=== PATIENT | female | born 1950 | race Caucasian/White ===

== ENCOUNTER 2016-12-29 19:35 | Inpatient (IN) | payer MEDICARE, OTHER ==
[2016-12-29] MEDS ORDERED: Zofran 4 MG/2 ML VIAL IV ONE (19:42)
[2016-12-29] MEDS ORDERED: Pepcid 20 MG VIAL IV ONE ×2 (19:42→20:06)
[2016-12-29] MEDS ORDERED: Hydromorphone 1 mg/ml Ampule IV ONE (19:42)
[2016-12-29] MEDS ORDERED: FEVERALL 650 MG PR STA (19:43)
[2016-12-29] MEDS ORDERED: Sodium Chloride 0.9% 1000 ML 1,000 ML IV SCH (19:45)
[2016-12-29 19:53] LABS: Mean Cell Volume 93.1 fl (78-100); Mean Corpuscular Hemoglobin 30.2 pg (26-32); Mean Platelet Volume 11.8 fl (6-9.5); Platelet Count 141 K/mm3 (150-450); Red Blood Count 4.96 M/mm3 (4.1-5.4); White Blood Count 13.9 K/mm3 (4.0-10.5)
[2016-12-29] MEDS ORDERED: Zofran 4 MG/2 ML VIAL ONE (20:05)
[2016-12-29] MEDS ORDERED: FEVERALL 650 MG ONE (20:05)
[2016-12-29] MEDS ORDERED: Hydromorphone 1 mg/ml Ampule ONE (20:06)
[2016-12-29] MEDS ORDERED: Sodium Chloride 0.9% 1000 ML 1,000 ML ONE (20:06)
--- NOTE | 2016-12-29 20:13 | ERPHSYRPT ---
- History of Present Illness Time Seen by Provider: 12/29/16 19:42 Historian: patient Patient Subjective Stated Complaint: pt has been having abd pain and vomiting since thursday she was better then tonight it is worse-co right lower quad pain pos fever sm amt of darrhea -took bentyl ib piedad Triage Nursing Assessment: pt is awake and alert and able to to answer questions Physician History: CC: abd pain Hx: 66 y/o patient of Dr Dubon with hx of irritable bowel syndrome. She has lower abd pain for the past 3 days. Now has fever. Some diarrhea. Pain worsened. Normal urination. Nausea without vomiting. She had prior normal EGD and colonoscopy in 2014. She had prior hysterectomy. No hx of DM. Pain is aching , sharp, worsened. Timing/Duration: day(s) (3) Severity of Pain-Max: moderate Severity of Pain-Current: moderate Allergies/Adverse Reactions: ibuprofen Adverse Reaction (Mild, Verified 12/29/16 19:44) stomach upset Home Medications: Dicyclomine HCl 20 mg [Bentyl 20 mg] 20 mg PO QID 12/29/16 [History] Lisinopril 10 mg [Zestril 10 MG] 10 mg DAILY 12/29/16 [History] Lisinopril 10 mg [Zestril 10 MG] 10 mg PO DAILY 12/29/16 [History] Lorazepam 0.5 mg [Ativan 0.5 MG] 0.5 mg PO TID PRN 12/29/16 [History] Lorazepam 0.5 mg [Ativan 0.5 MG] 1 tab DAILY 12/29/16 [History] Hx Tetanus, Diphtheria Vaccination/Date Given: No Hx Influenza Vaccination/Date Given: No Hx Pneumococcal Vaccination/Date Given: No Immunizations Up to Date: No - Review of Systems Constitutional: Fever, Chills, Fatigue, Malaise Eyes: No Symptoms Ears, Nose, & Throat: No Symptoms Respiratory: No Cough Cardiac: No Chest Pain Abdominal/Gastrointestinal: Abdominal Pain, Nausea, Diarrhea, No Vomiting Genitourinary Symptoms: No Dysuria Skin: No Rash Neurological: No Headache All Other Systems: Reviewed and Negative - Past Medical History Pertinent Past Medical History: Yes Neurological History: No Pertinent History ENT History: No Pertinent History Cardiac History: Hypertension Respiratory History: No Pertinent History Endocrine Medical History: No Pertinent History Musculoskeletal History: Arthritis GI Medical History: GERD, Hemorrhoids, Irritable Bowel History: No Pertinent History Psycho-Social History: Anxiety Female Reproductive Disorders: Abnormal Uterine Bleeding Other Medical History: anemia - Past Surgical History Past Surgical History: Yes Neuro Surgical History: No Pertinent History Cardiac: No Pertinent History Respiratory: No Pertinent History Gastrointestinal: Hemorrhoidectomy Genitourinary: No Pertinent History Musculoskeletal: No Pertinent History Female Surgical History: Hysterectomy Other Surgical History: tubal - Social History Smoking Status: Never smoker Exposure to second hand smoke: No Drug Use: none Patient Lives Alone: No - Female History Hx Last Menstrual Period: hyst 20yrs ago - Nursing Vital Signs Nursing Vital Signs: Initial Vital Signs Temperature 101.0 F Temperature Source Oral Pulse Rate 90 Respiratory Rate 18 Blood Pressure [Right Arm] 145/91 Pain Intensity 0 - Physical Exam General Appearance: alert Eye Exam: PERRL/EOMI Ears, Nose, Throat Exam: normal ENT inspection, dry mucous membranes Neck Exam: normal inspection, non-tender, supple Respiratory Exam: normal breath sounds, lungs clear, No respiratory distress Cardiovascular Exam: regular rate/rhythm, No murmur Gastrointestinal/Abdomen Exam: soft, tenderness (lower abdomen, guarding in RLQ , no mass) Back Exam: normal inspection Extremity Exam: normal inspection, normal range of motion Neurologic Exam: alert, oriented x 3, cooperative, mitigation supervisor II-XII nml as tested, sensation nml, No motor deficits Skin Exam: warm, dry, No rash SpO2 Interpretation: normal SpO2: 94 Oxygen Delivery: Room Air - Course Nursing assessment & vital signs reviewed: Yes EKG Interpreted by Me: RATE (86), Sinus Rhythm, NORMAL AXIS, NORMAL INTERVALS ( QTc 453), NORMAL QRS, NORMAL ST-T, Non-specific ST Changes (borderline for LVH) Ordered Tests: Active Orders 24 hr Category Date Time Status Cath for Specimen-Straight STAT Care 12/29/16 19:42 Active EKG-ER Only STAT Care 12/29/16 19:42 Active IV Insertion STAT Care 12/29/16 19:42 Active NPO (ED) STAT Care 12/29/16 19:42 Active ABDOMEN AND PELVIS W CONTRAST [CT] Stat Exams 12/29/16 19:43 Taken CBC W DIFF Stat Lab 12/29/16 19:45 Completed CMP Stat Lab 12/29/16 19:45 Completed CULTURE,URINE Stat Lab 12/29/16 20:05 Received LIPASE Stat Lab 12/29/16 19:45 Completed Lactic Acid Urgent Lab 12/29/16 19:55 Completed Manual Differential NC Stat Lab 12/29/16 19:45 Completed UA W/ MICROSCOPIC Stat Lab 12/29/16 20:05 Completed Medication Summary Generic Name Dose Route Start Last Admin Trade Name Herberth PRN Reason Stop Dose Admin Sodium Chloride 1,000 mls @ 100 mls/hr 12/29/16 19:45 12/29/16 20:10 Sodium Chloride 0.9% 1000 Ml IV 01/28/17 19:44 100 mls/hr .Q10H PABLITO Administration Discontinued Medications Generic Name Dose Route Start Last Admin Trade Name Herberth PRN Reason Stop Dose Admin Acetaminophen 975 mg 12/29/16 19:43 12/29/16 20:09 Feverall 650 Mg MS 12/29/16 19:44 975 mg STAT STA Administration Acetaminophen Confirm 12/29/16 20:05 Feverall 650 Mg Administered 12/29/16 20:06 Dose 1,300 mg .ROUTE .STK-MED ONE Famotidine 20 mg 12/29/16 19:42 12/29/16 20:08 Pepcid 20 Mg Vial IV 12/29/16 19:43 20 mg STAT ONE Administration Famotidine Confirm 12/29/16 20:06 Pepcid 20 Mg Vial Administered 12/29/16 20:07 Dose 20 mg IV .STK-MED ONE Hydromorphone HCl 0.5 mg 12/29/16 19:42 12/29/16 20:09 Hydromorphone 1 Mg/Ml Ampule IV 12/29/16 19:43 0.5 mg STAT ONE Administration Hydromorphone HCl Confirm 12/29/16 20:06 Hydromorphone 1 Mg/Ml Ampule Administered 12/29/16 20:07 Dose 1 mg .ROUTE .STK-MED ONE Sodium Chloride Confirm 12/29/16 20:06 Sodium Chloride 0.9% 1000 Ml Administered 12/29/16 20:07 Dose 1,000 mls @ ud .ROUTE .STK-MED ONE Ondansetron HCl 4 mg 12/29/16 19:42 12/29/16 20:08 Zofran 4 Mg/2 Ml Vial IV 12/29/16 19:43 4 mg STAT ONE Administration Ondansetron HCl Confirm 12/29/16 20:05 Zofran 4 Mg/2 Ml Vial Administered 12/29/16 20:06 Dose 4 mg .ROUTE .STK-MED ONE Lab/Rad Data: Laboratory Result Diagrams 12/29/16 19:45 12/29/16 19:45 Laboratory Results 12/29/16 12/29/16 12/29/16 Range/Units 20:05 19:55 19:45 WBC (4.0-10.5) K/mm3 RBC (4.1-5.4) M/mm3 Hgb (12.0-16.0) gm/dl Hct (35-47) % MCV (78-100) fl MCH (26-32) pg MCHC (32-36) g/dl RDW (11.5-14.0) % Plt Count (150-450) K/mm3 MPV (6-9.5) fl Segmented Neutrophils (36.0-66.0) % Lymphocytes (Manual) (24-44) % Monocytes (Manual) (0.0-12.0) % Differential Comment Platelet Estimate (NORMAL) Sodium 143 (136-145) mEq/L Potassium 4.0 (3.5-5.1) mEq/L Chloride 104 (98-107) mEq/L Carbon Dioxide 24.6 (21-32) mEq/L Anion Gap 17.9 H (5-15) MEQ/L BUN 10 (9-20) mg/dL Creatinine 0.92 (0.55-1.30) mg/dl Estimated GFR > 60 ML/MIN Glucose 156 H (70-110) MG/DL Lactic Acid 1.5 (0.4-2.0) Calcium 9.4 (8.5-10.1) mg/dL Total Bilirubin 0.5 (0.2-1.0) mg/dL AST 20 (15-37) U/L ALT 18 (12-78) U/L Alkaline Phosphatase 151 H (46-116) U/L Serum Total Protein 7.5 (6.4-8.2) gm/dL Albumin 3.8 (3.4-5.0) g/dL Lipase 153 (73-393) U/L Ur Collection Type CATH Urine Color YELLOW (YELLOW) Urine Appearance CLEAR (CLEAR) Urine pH 5.5 (5-6) Ur Specific [place] >=1.030 (1.005-1.025) Urine Protein 100 (Negative) Urine Glucose (UA) NEGATIVE (NEGATIVE) mg/dL Urine Ketones MODERATE-40 (NEGATIVE) Urine Nitrite NEGATIVE (NEGATIVE) Urine Bilirubin SMALL (NEGATIVE) Urine Urobilinogen 1 (0-1) mg/dL Urine WBC (Auto) NEGATIVE (NEGATIVE) Urine RBC (Auto) SMALL (0-5) Zach/ul Urine Microscopic RBC 5-10 (0-2) /HPF Ur Epithelial Cells RARE (FEW) /HPF Urine Bacteria MANY (NEGATIVE) /HPF Urine Mucus MODERATE (NEGATIVE) /HPF Specimen Received [id number] 12/29/16 Range/Units 19:45 WBC 13.9 H (4.0-10.5) K/mm3 RBC 4.96 (4.1-5.4) M/mm3 Hgb 15.0 (12.0-16.0) gm/dl Hct 46.2 (35-47) % MCV 93.1 (78-100) fl MCH 30.2 (26-32) pg MCHC 32.5 (32-36) g/dl RDW 13.0 (11.5-14.0) % Plt Count 141 L (150-450) K/mm3 MPV 11.8 H (6-9.5) fl Segmented Neutrophils 90 H (36.0-66.0) % Lymphocytes (Manual) 6 L (24-44) % Monocytes (Manual) 4 (0.0-12.0) % Differential Comment NORMAL Platelet Estimate NORMAL (NORMAL) Sodium (136-145) mEq/L Potassium (3.5-5.1) mEq/L Chloride (98-107) mEq/L Carbon Dioxide (21-32) mEq/L Anion Gap (5-15) MEQ/L BUN (9-20) mg/dL Creatinine (0.55-1.30) mg/dl Estimated GFR ML/MIN Glucose (70-110) MG/DL Lactic Acid (0.4-2.0) Calcium (8.5-10.1) mg/dL Total Bilirubin (0.2-1.0) mg/dL AST (15-37) U/L ALT (12-78) U/L Alkaline Phosphatase (46-116) U/L Serum Total Protein (6.4-8.2) gm/dL Albumin (3.4-5.0) g/dL Lipase (73-393) U/L Ur Collection Type Urine Color (YELLOW) Urine Appearance (CLEAR) Urine pH (5-6) Ur Specific [place] (1.005-1.025) Urine Protein (Negative) Urine Glucose (UA) (NEGATIVE) mg/dL Urine Ketones (NEGATIVE) Urine Nitrite (NEGATIVE) Urine Bilirubin (NEGATIVE) Urine Urobilinogen (0-1) mg/dL Urine WBC (Auto) (NEGATIVE) Urine RBC (Auto) (0-5) Zach/ul Urine Microscopic RBC (0-2) /HPF Ur Epithelial Cells (FEW) /HPF Urine Bacteria (NEGATIVE) /HPF Urine Mucus (NEGATIVE) /HPF Specimen Received - Progress Progress Note: 12/29/16 20:[address] to assess for appendicitis or diverticultitis. She appears to have intrabdominal infectious process that might be surgical. 12/29/16 21:20 CT abd/pelvis: [place] 9:15 PM 12/29/2016: No comps. Large HH w/ fluid distended intrathoracic stomach. Diffuse moderate fluid distended small bowel loops w/ fluid leveling, ileus vs enteritis. Small pelvic free fluid. Normal appy. 12/29/16 21:28 Pain improved. She reports no diarrhea today. Vomited X 2 today. 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 Called Dr Dubon. Will place in obs, levaqun, flagyl, and recheck cbc in AM. Discussed with : Bob Will see patient in: hospital (observation) Counseled pt/family regarding: lab results, diagnosis, need for follow-up, rad results - Departure Time of Disposition: 21:29 Departure Disposition: Observation Clinical Impression: Acute abdominal pain Condition: Fair Critical Care Time: No Referrals: HITESH DUBON MD [Primary Care Provider] -
[2016-12-29 20:14] LABS: ALBUMIN 3.8 g/dL (3.4-5.0); ALKALINE PHOSPHATASE 151 U/L (46-116); ANION GAP 17.9 MEQ/L (5-15); BILIRUBIN,TOTAL 0.5 mg/dL (0.2-1.0); BLOOD UREA NITROGEN 10 mg/dL (9-20); CHLORIDE 104 mEq/L (98-107); Carbon Dioxide 24.6 mEq/L (21-32); Glucose 156 MG/DL (70-110); LIPASE 153 U/L (73-393); SGOT/AST 20 U/L (15-37); SGPT/ALT 18 U/L (12-78); SODIUM 143 mEq/L (136-145); Total Protein 7.5 gm/dL (6.4-8.2)
[2016-12-29 20:20] LABS: Collection Type CATH
[2016-12-29 20:21] LABS: Bacteria MANY /HPF (NEGATIVE); COMPLETE URINE MICROSCOPIC? YES; Epithelial Cells RARE /HPF (FEW); Mucus MODERATE /HPF (NEGATIVE); Ph 5.5 (5-6)
[2016-12-29 21:08] LABS: Platelet Estimate NORMAL (NORMAL); Total Cells Counted 100
[2016-12-29] MEDS ORDERED: LEVOFLOXACIN 750MG/150ML D5W 150 ML IV ONE (21:27)
[2016-12-29] MEDS ORDERED: FLAGYL 500 MG IVPB 100 ML IV ONE ×2 (21:27→22:06)
[2016-12-29] MEDS: Pepcid 20 MG VIAL IV SCH (23:48)
[2016-12-29] MEDS: D5W/0.45NS W/ 20mEq KCl 1000 ML 1,000 ML IV SCH (23:54)
[2016-12-30] MEDS: DILAUDID 2 MG INJECTION IV PRN ×4 (00:06→21:18)
[2016-12-30] MEDS: FLAGYL 500 MG IVPB 100 ML IV SCH ×5 (00:14→23:19)
[2016-12-30] MEDS: Zofran 4 MG/2 ML VIAL IV PRN ×2 (04:40→11:02)
[2016-12-30 06:31] LABS: BASOPHIL % 0.1 % (0.0-0.4); Eosinophil % 0.3 % (0.00-5.0); Granulocytes % 75.7 % (36.0-66.0); Lymphocytes % 11.5 % (24.0-44.0); Mean Cell Volume 95.1 fl (78-100); Mean Corpuscular Hemoglobin 30.3 pg (26-32); Mean Platelet Volume 12.4 fl (6-9.5); Monocytes % 12.4 % (0.0-12.0); Platelet Count 111 K/mm3 (150-450); Red Blood Count 4.32 M/mm3 (4.1-5.4); White Blood Count 8.9 K/mm3 (4.0-10.5)
[2016-12-30 07:10] LABS: ALBUMIN 3.1 g/dL (3.4-5.0); ALKALINE PHOSPHATASE 116 U/L (46-116); ANION GAP 14.4 MEQ/L (5-15); BILIRUBIN,TOTAL 0.4 mg/dL (0.2-1.0); BLOOD UREA NITROGEN 8 mg/dL (9-20); CHLORIDE 109 mEq/L (98-107); Carbon Dioxide 26.1 mEq/L (21-32); Glucose 125 MG/DL (70-110); Potassium 3.9 mEq/L (3.5-5.1); SGOT/AST 17 U/L (15-37); SGPT/ALT 16 U/L (12-78); SODIUM 146 mEq/L (136-145); Total Protein 6.3 gm/dL (6.4-8.2)
--- NOTE | 2016-12-30 08:48 | XRAY ---
Indication: Right lower quadrant pain, emesis, diarrhea, and fever. History of IBS and GERD. Multiple contiguous axial images obtained through the abdomen and pelvis using 80 cc Isovue 370 contrast only. Comparison: None Lung bases demonstrates large hiatal hernia with partial intrathoracic stomach that is moderately fluid distended with adjacent bilateral atelectasis. No suspicious pulmonary mass, infiltrate, or effusion. Heart is borderline enlarged. Moderate diffuse fluid distended small bowel loops with fluid leveling, ileus versus enteritis. Small pelvic free fluid may be reactive. Normal colonic bowel gas without bowel wall thickening. Normal appendix. Minimal sigmoid diverticulosis. Previous hysterectomy. Remaining liver, gallbladder, pancreas, spleen, adrenal glands, kidneys, ureters, and bladder appear unremarkable. Minimal aortoiliac calcifications. No AAA or pathologic retroperitoneal lymphadenopathy. Osseous structures intact with mild osteopenia, mild degenerative changes throughout the spine and both hips, and mild dextroscoliosis. Impression: 1. Fluid distended small bowel loops with fluid leveling. Rule out ileus versus enteritis. Small pelvic fluid presumed reactive. 2. Large hiatal hernia with fluid distended intrathoracic stomach. 3. Sigmoid diverticulosis. CT DI 15.82
--- NOTE | 2016-12-30 08:56 | PCM.HP ---
History of Present Illness - Chief Complaint Chief Complaint: abd pain History of Present Illness: is a 66 year old female who presented to the ER with a 2 day history of worsening low abdominal pain, she had some nausea and vomiting. No diarrhea, had some constipation issues prior. Her pain worsened and she was unable to eat or drink due to pain. - Review of Systems Constitutional: No Fever, No Chills Respiratory: No Symptoms Cardiac: No Chest Pain, No Edema, No Syncope Abdominal/Gastrointestinal: Abdominal Pain, Nausea, Vomiting, No Diarrhea, No Hematochezia, No Melena Genitourinary Symptoms: No Dysuria Skin: No Rash All Other Systems: Reviewed and Negative Medications & Allergies Home Medications: Home Medication List Acetaminophen [Tylenol] 650 mg PO Q6HPRN PRN 12/29/16 [History Confirmed ] Dicyclomine HCl 20 mg [Bentyl 20 mg] 20 mg PO QID 12/29/16 [History Confirmed 12/29/16] Lisinopril 10 mg [Zestril 10 MG] 10 mg PO HS 12/29/16 [History Confirmed 12/29/16] Lorazepam 0.5 mg [Ativan 0.5 MG] 0.5 mg PO TID PRN 12/29/16 [History Confirmed 12/29/16] Peppermint Oil [Ibgard] 90 mg PO TIDPRN 12/29/16 [History Confirmed 12/29/16] Allergies/Adverse Reactions: Allergies Allergy/AdvReac Type Severity Reaction Status Date / Time ibuprofen AdvReac Mild stomach Verified 12/29/16 19:44 upset - Past Medical History Past Medical History: Yes Neurological History: No Pertinent History ENT History: No Pertinent History Cardiac History: Hypertension, Other Respiratory History: No Pertinent History Endocrine Medical History: No Pertinent History Musculoskelatal History: Arthritis, Osteoarthritis GI Medical History: GERD, Hemorrhoids, Irritable Bowel History: No Pertinent History Pyscho-Social History: Anxiety Reproductive Disorders: Abnormal Uterine Bleeding Comment: anemia, mitral valve prolapse - Female History Hx Last Menstrual Period: hyst 20yrs ago Are you now?: No - Past Surgical History Past Surgical History: Yes Neuro Surgical History: No Pertinent History Cardiac History: No Pertinent History Respiratory Surgery: No Pertinent History GI Surgical History: Hemorrhoidectomy Genitourinary Surgical Hx: No Pertinent History Musculskeletal Surgical Hx: No Pertinent History Female Surgical History: Hysterectomy, Tubal Ligation Other Surgical History: tubal - Social History Smoking Status: Never smoker Exposure to second hand smoke: No Alcohol: None Drug Use: none - Physical Exam Vital Signs: Vital Signs - 24 hr Temp Pulse Resp BP Pulse Ox 12/30/16 07:30 98.6 F 64 17 145/79 91 L 12/30/16 04:00 98.9 F 69 22 142/77 93 L 12/29/16 22:40 98.4 F 76 18 134/71 95 12/29/16 21:29 94 L 12/29/16 20:53 90 18 145/91 95 12/29/16 19:49 101.0 F 84 16 142/84 94 L Oxygen-Last 24 hours O2 Percentage 2 Liters = 28% General Appearance: no apparent distress, alert Neurologic Exam: alert, oriented x 3, cooperative, normal mood/affect, nml cerebellar function, nml station & gait, sensation nml, No motor deficits Eye Exam: PERRL/EOMI, eyes nml inspection Respiratory Exam: normal breath sounds, lungs clear, No respiratory distress Cardiovascular Exam: regular rate/rhythm, normal heart sounds, normal peripheral pulses Gastrointestinal/Abdomen Exam: soft, normal bowel sounds, tenderness (lower abdomen), No mass Extremity Exam: normal inspection, normal range of motion, pelvis stable Skin Exam: normal color, warm, dry, No rash Results - Labs Lab/Micro Results: Lab Results-Last 24 Hours 12/30/16 12/30/16 Range/Units 05:45 05:45 WBC 8.9 (4.0-10.5) K/mm3 RBC 4.32 (4.1-5.4) M/mm3 Hgb 13.1 (12.0-16.0) gm/dl Hct 41.1 (35-47) % MCV 95.1 (78-100) fl MCH 30.3 (26-32) pg MCHC 31.9 L (32-36) g/dl RDW 13.0 (11.5-14.0) % Plt Count 111 L (150-450) K/mm3 MPV 12.4 H (6-9.5) fl Gran % 75.7 H (36.0-66.0) % Lymphocytes % 11.5 L (24.0-44.0) % Monocytes % 12.4 H (0.0-12.0) % Eosinophils % 0.3 (0.00-5.0) % Basophils % 0.1 (0.0-0.4) % Basophils # 0.01 (0-0.4) Sodium 146 H (136-145) mEq/L Potassium 3.9 (3.5-5.1) mEq/L Chloride 109 H (98-107) mEq/L Carbon Dioxide 26.1 (21-32) mEq/L Anion Gap 14.4 (5-15) MEQ/L BUN 8 L (9-20) mg/dL Creatinine 0.79 (0.55-1.30) mg/dl Estimated GFR > 60 ML/MIN Glucose 125 H (70-110) MG/DL Calcium 8.7 (8.5-10.1) mg/dL Total Bilirubin 0.4 (0.2-1.0) mg/dL AST 17 (15-37) U/L ALT 16 (12-78) U/L Alkaline Phosphatase 116 (46-116) U/L Serum Total Protein 6.3 L (6.4-8.2) gm/dL Albumin 3.1 L (3.4-5.0) g/dL Assessment/Plan (1) Ileus Current Visit: Yes Status: Acute Assessment & Plan: start clears and see how she tolerates at this time Code(s): K56.7 - ILEUS, UNSPECIFIED (2) Acute abdominal pain Current Visit: Yes Status: Acute Assessment & Plan: continue levaquin and flagyl, emperic treatment for possible early diverticulitis. wbc improved and normal today Code(s): R10.9 - UNSPECIFIED ABDOMINAL PAIN (3) Anxiety Current Visit: No Status: Acute Assessment & Plan: continue home meds Code(s): F41.9 - ANXIETY DISORDER, UNSPECIFIED (4) Irritable bowel syndrome (IBS) Current Visit: Yes Status: Acute
[2016-12-30] MEDS: D5W/0.45NS W/ 20mEq KCl 1000 ML 1,000 ML IV SCH (10:40)
[2016-12-30] MEDS: CLARITIN 10 MG PO SCH (11:03)
[2016-12-30] MEDS: Pepcid 20 MG VIAL IV SCH ×2 (11:06→21:11)
[2016-12-30] MEDS: Flonase NASAL NS SCH (11:06)
[2016-12-30] MEDS: LEVOFLOXACIN 750MG/150ML D5W 150 ML IV SCH (11:07)
[2016-12-30] MEDS: Zestril 10 MG PO SCH (21:11)
[2016-12-30] MEDS: Ativan 0.5 MG PO PRN (21:11)
[2016-12-31] MEDS: D5W/0.45NS W/ 20mEq KCl 1000 ML 1,000 ML IV SCH ×3 (01:13→16:05)
[2016-12-31] MEDS: Zofran 4 MG/2 ML VIAL IV PRN ×3 (02:34→20:34)
[2016-12-31] MEDS: DILAUDID 2 MG INJECTION IV PRN ×3 (02:52→20:46)
[2016-12-31] MEDS: FLAGYL 500 MG IVPB 100 ML IV SCH ×3 (05:08→17:15)
[2016-12-31 06:02] LABS: Mean Cell Volume 95.1 fl (78-100); Mean Corpuscular Hemoglobin 30.3 pg (26-32); Mean Platelet Volume 12.3 fl (6-9.5); Platelet Count 98 K/mm3 (150-450); Red Blood Count 4.29 M/mm3 (4.1-5.4); Red Cell Distribution Width 12.7 % (11.5-14.0); White Blood Count 8.9 K/mm3 (4.0-10.5)
[2016-12-31 06:34] LABS: ALKALINE PHOSPHATASE 111 U/L (46-116); ANION GAP 12.1 MEQ/L (5-15); BILIRUBIN,TOTAL 0.2 mg/dL (0.2-1.0); BLOOD UREA NITROGEN 7 mg/dL (9-20); CHLORIDE 107 mEq/L (98-107); Carbon Dioxide 25.6 mEq/L (21-32); Glucose 104 MG/DL (70-110); Potassium 4.1 mEq/L (3.5-5.1); SGOT/AST 20 U/L (15-37); SGPT/ALT 16 U/L (12-78); SODIUM 141 mEq/L (136-145); Total Protein 6.2 gm/dL (6.4-8.2)
[2016-12-31 07:28] LABS: Basophil 1 % (0.0-1.0); Total Cells Counted 100
[2016-12-31 07:29] LABS: Platelet Estimate DECREASED (NORMAL)
[2016-12-31] MEDS ORDERED: CITROMA 296 ML PO SCH (08:32)
--- NOTE | 2016-12-31 08:34 | PCM.NOTE ---
Date and Time: 12/31/16832 Subjective Assessment: pain improved, patient tolerating clears, had some nausea overnight but better this am. hasn't had a BM in several days Objective Exam General Appearance: no apparent distress, alert Respiratory Exam: normal breath sounds, lungs clear, No respiratory distress Cardiovascular Exam: regular rate/rhythm, normal heart sounds Gastrointestinal/Abdomen Exam: soft, tenderness (lower abdomen), No mass Extremity Exam: normal inspection, normal range of motion OBJECTIVE DATA Vital Signs: Vital Signs - 24 hr Temp Pulse Resp BP Pulse Ox 12/31/16 08:00 98.4 F 62 16 145/80 95 12/31/16 04:00 98.9 F 57 L 16 134/75 95 12/31/16 00:00 98.5 F 61 17 145/80 95 12/30/16 20:00 98.3 F 67 18 145/75 95 12/30/16 16:00 98.3 F 59 L 17 163/79 95 12/30/16 12:00 98.0 F 65 16 141/75 91 L Pain Assessment - Last Documented Pain Intensity 4 Pain Scale Used [facility] Intake and Output: Intake & Output 12/28/16 12/29/16 12/30/16 12/31/16 11:59 11:59 11:59 11:59 Intake Total 1021 2551 Output Total 700 2650 Balance 321 -99 Weight 67.268 kg Lab Results: Lab Results-Last 24 Hours 12/31/16 12/31/16 Range/Units 05:40 05:40 WBC 8.9 (4.0-10.5) K/mm3 RBC 4.29 (4.1-5.4) M/mm3 Hgb 13.0 (12.0-16.0) gm/dl Hct 40.8 (35-47) % MCV 95.1 (78-100) fl MCH 30.3 (26-32) pg MCHC 31.9 L (32-36) g/dl RDW 12.7 (11.5-14.0) % Plt Count 98 L (150-450) K/mm3 MPV 12.3 H (6-9.5) fl Segmented Neutrophils 79 H (36.0-66.0) % Lymphocytes (Manual) 15 L (24-44) % Monocytes (Manual) 5 (0.0-12.0) % Basophils (Manual) 1 (0.0-1.0) % Differential Comment NORMAL Platelet Estimate DECREASED (NORMAL) Sodium 141 (136-145) mEq/L Potassium 4.1 (3.5-5.1) mEq/L Chloride 107 (98-107) mEq/L Carbon Dioxide 25.6 (21-32) mEq/L Anion Gap 12.1 (5-15) MEQ/L BUN 7 L (9-20) mg/dL Creatinine 0.79 (0.55-1.30) mg/dl Estimated GFR > 60 ML/MIN Glucose 104 (70-110) MG/DL Calcium 8.7 (8.5-10.1) mg/dL Total Bilirubin 0.2 (0.2-1.0) mg/dL AST 20 (15-37) U/L ALT 16 (12-78) U/L Alkaline Phosphatase 111 (46-116) U/L Serum Total Protein 6.2 L (6.4-8.2) gm/dL Albumin 3.0 L (3.4-5.0) g/dL Assessment/Plan (1) Ileus Current Visit: Yes Status: Acute Assessment & Plan: will add mag citrate for constipation, advance to bland diet Code(s): K56.7 - ILEUS, UNSPECIFIED (2) Acute abdominal pain Current Visit: Yes Status: Acute Code(s): R10.9 - UNSPECIFIED ABDOMINAL PAIN (3) Anxiety Current Visit: No Status: Acute Code(s): F41.9 - ANXIETY DISORDER, UNSPECIFIED (4) Irritable bowel syndrome (IBS) Current Visit: Yes Status: Acute
[2016-12-31] MEDS: Flonase NASAL NS SCH (10:21)
[2016-12-31] MEDS: CLARITIN 10 MG PO SCH (10:22)
[2016-12-31] MEDS: Pepcid 20 MG VIAL IV SCH ×2 (10:22→22:01)
[2016-12-31] MEDS: LEVOFLOXACIN 750MG/150ML D5W 150 ML IV SCH (10:23)
[2016-12-31] MEDS: Dulcolax 10 MG SUPP PR PRN ×2 (16:42→17:43)
[2016-12-31] MEDS: Zestril 10 MG PO SCH (22:01)
[2016-12-31] MEDS: Ativan 0.5 MG PO PRN (22:05)
[2017-01-01] MEDS: FLAGYL 500 MG IVPB 100 ML IV SCH ×4 (00:23→17:28)
[2017-01-01] MEDS: DILAUDID 2 MG INJECTION IV PRN ×5 (02:15→22:27)
[2017-01-01] MEDS: Zofran 4 MG/2 ML VIAL IV PRN ×3 (02:54→17:26)
[2017-01-01] MEDS: D5W/0.45NS W/ 20mEq KCl 1000 ML 1,000 ML IV SCH ×2 (02:58→17:20)
[2017-01-01 05:43] LABS: BASOPHIL % 0.2 % (0.0-0.4); Eosinophil % 0.2 % (0.00-5.0); Granulocytes % 82.5 % (36.0-66.0); Lymphocytes % 7.5 % (24.0-44.0); Mean Cell Volume 94.7 fl (78-100); Mean Corpuscular Hemoglobin 30.2 pg (26-32); Monocytes % 9.6 % (0.0-12.0); Platelet Count 112 K/mm3 (150-450); Red Blood Count 4.54 M/mm3 (4.1-5.4); Red Cell Distribution Width 12.6 % (11.5-14.0); White Blood Count 9.6 K/mm3 (4.0-10.5)
[2017-01-01 05:57] LABS: ALBUMIN 3.1 g/dL (3.4-5.0); ALKALINE PHOSPHATASE 111 U/L (46-116); ANION GAP 10.4 MEQ/L (5-15); BILIRUBIN,TOTAL 0.2 mg/dL (0.2-1.0); BLOOD UREA NITROGEN 5 mg/dL (9-20); CHLORIDE 103 mEq/L (98-107); Carbon Dioxide 31.1 mEq/L (21-32); Glucose 133 MG/DL (70-110); Potassium 3.7 mEq/L (3.5-5.1); SGOT/AST 18 U/L (15-37); SGPT/ALT 20 U/L (12-78); SODIUM 141 mEq/L (136-145); Total Protein 6.3 gm/dL (6.4-8.2)
--- NOTE | 2017-01-01 08:06 | PCM.NOTE ---
Date and Time: 01/01/17804 Subjective Assessment: patient c/o nausea, no results from mag citrate or dulcolax yesterday, stomach upset after dulcolax Objective Exam General Appearance: no apparent distress, alert Respiratory Exam: normal breath sounds, lungs clear, No respiratory distress Cardiovascular Exam: regular rate/rhythm Gastrointestinal/Abdomen Exam: soft, No tenderness, No mass Extremity Exam: normal inspection, normal range of motion OBJECTIVE DATA Vital Signs: Vital Signs - 24 hr Temp Pulse Resp BP Pulse Ox 01/01/17 07:34 97.9 F 73 17 160/82 93 L 01/01/17 04:00 99.0 F 63 24 172/85 92 L 01/01/17 00:00 98.1 F 69 18 138/71 94 L 12/31/16 20:00 98.3 F 68 16 142/79 93 L 12/31/16 16:00 98.8 F 73 17 156/89 93 L 12/31/16 12:00 97.8 F 66 18 147/81 93 L Pain Assessment - Last Documented Pain Intensity 5 Pain Scale Used [facility] Intake and Output: Intake & Output 12/29/16 12/30/16 12/31/16 01/01/17 11:59 11:59 11:59 11:59 Intake Total 1021 2551 3292 Output Total 700 2650 800 Balance 321 -99 2492 Weight 67.268 kg Lab Results: Lab Results-Last 24 Hours 01/01/17 01/01/17 Range/Units 05:05 05:05 WBC 9.6 (4.0-10.5) K/mm3 RBC 4.54 (4.1-5.4) M/mm3 Hgb 13.7 (12.0-16.0) gm/dl Hct 43.0 (35-47) % MCV 94.7 (78-100) fl MCH 30.2 (26-32) pg MCHC 31.9 L (32-36) g/dl RDW 12.6 (11.5-14.0) % Plt Count 112 L (150-450) K/mm3 MPV 12.0 H (6-9.5) fl Gran % 82.5 H (36.0-66.0) % Lymphocytes % 7.5 L (24.0-44.0) % Monocytes % 9.6 (0.0-12.0) % Eosinophils % 0.2 (0.00-5.0) % Basophils % 0.2 (0.0-0.4) % Basophils # 0.02 (0-0.4) Sodium 141 (136-145) mEq/L Potassium 3.7 (3.5-5.1) mEq/L Chloride 103 (98-107) mEq/L Carbon Dioxide 31.1 (21-32) mEq/L Anion Gap 10.4 (5-15) MEQ/L BUN 5 L (9-20) mg/dL Creatinine 0.87 (0.55-1.30) mg/dl Estimated GFR > 60 ML/MIN Glucose 133 H (70-110) MG/DL Calcium 8.6 (8.5-10.1) mg/dL Total Bilirubin 0.2 (0.2-1.0) mg/dL AST 18 (15-37) U/L ALT 20 (12-78) U/L Alkaline Phosphatase 111 (46-116) U/L Serum Total Protein 6.3 L (6.4-8.2) gm/dL Albumin 3.1 L (3.4-5.0) g/dL Assessment/Plan (1) Ileus Current Visit: Yes Status: Acute Assessment & Plan: attempt enema, likely related to constipation, abd exam benign Code(s): K56.7 - ILEUS, UNSPECIFIED (2) Acute abdominal pain Current Visit: Yes Status: Acute Code(s): R10.9 - UNSPECIFIED ABDOMINAL PAIN (3) Anxiety Current Visit: No Status: Acute Code(s): F41.9 - ANXIETY DISORDER, UNSPECIFIED (4) Irritable bowel syndrome (IBS) Current Visit: Yes Status: Acute
[2017-01-01] MEDS: Flonase NASAL NS SCH (09:08)
[2017-01-01] MEDS: CLARITIN 10 MG PO SCH (09:08)
[2017-01-01] MEDS: LEVOFLOXACIN 750MG/150ML D5W 150 ML IV SCH (09:09)
[2017-01-01] MEDS: Pepcid 20 MG VIAL IV SCH ×2 (09:09→22:21)
[2017-01-01] MEDS ORDERED: Senokot-S Tablet PO ONE (13:07)
[2017-01-01] MEDS: Phenergan 25 MG INJ IV PRN (14:07)
[2017-01-01] MEDS: Zestril 10 MG PO SCH (22:21)
[2017-01-02] MEDS: FLAGYL 500 MG IVPB 100 ML IV SCH ×2 (00:29→05:18)
[2017-01-02] MEDS: Zofran 4 MG/2 ML VIAL IV PRN (00:35)
[2017-01-02] MEDS: Ativan 0.5 MG PO PRN (01:26)
[2017-01-02] MEDS: Phenergan 25 MG INJ IV PRN (04:27)
[2017-01-02] MEDS: DILAUDID 2 MG INJECTION IV PRN (04:27)
[2017-01-02] MEDS: D5W/0.45NS W/ 20mEq KCl 1000 ML 1,000 ML IV SCH (04:29)
[2017-01-02 05:15] LABS: BASOPHIL % 0.1 % (0.0-0.4); Eosinophil % 0.1 % (0.00-5.0); Granulocytes % 79.4 % (36.0-66.0); Lymphocytes % 11.1 % (24.0-44.0); Mean Cell Volume 95.5 fl (78-100); Mean Corpuscular Hemoglobin 30.3 pg (26-32); Monocytes % 9.3 % (0.0-12.0); Platelet Count 112 K/mm3 (150-450); Red Blood Count 4.23 M/mm3 (4.1-5.4); Red Cell Distribution Width 12.6 % (11.5-14.0); White Blood Count 8.9 K/mm3 (4.0-10.5)
[2017-01-02 05:39] LABS: ALBUMIN 2.9 g/dL (3.4-5.0); ALKALINE PHOSPHATASE 107 U/L (46-116); ANION GAP 12.4 MEQ/L (5-15); BILIRUBIN,TOTAL 0.4 mg/dL (0.2-1.0); BLOOD UREA NITROGEN 7 mg/dL (9-20); CHLORIDE 104 mEq/L (98-107); Carbon Dioxide 25.7 mEq/L (21-32); Glucose 120 MG/DL (70-110); Potassium 3.8 mEq/L (3.5-5.1); SGOT/AST 17 U/L (15-37); SGPT/ALT 17 U/L (12-78); SODIUM 138 mEq/L (136-145); Total Protein 6.1 gm/dL (6.4-8.2)
--- NOTE | 2017-01-02 08:37 | PCM.DS ---
Discharge Summary Date of Admission: 12/30/16 08:52 Admitting Physician: HITESH DUBON Primary Care Provider: HITESH DUBON Allergies Allergies ibuprofen Adverse Reaction (Mild, Verified 12/29/16 19:44) stomach upset Hospital Summary - Hospital Course Hospital Course: patient was admitted with lower abdominal pain, had constipation on arrival which has resolved. she was started on levaquin and flagyl emperically for possible diverticulitis. I feel she might have had an ileus and constipation which have resolved. she is tolerating a regular diet and feels well on the date of discharge - Vitals & Intake/Output Vital Signs: Vital Signs Temperature 98.6 F 01/02/17 04:00 Pulse Rate 77 01/02/17 04:00 Respiratory Rate 20 01/02/17 04:00 Blood Pressure 153/79 01/02/17 04:00 O2 Sat by Pulse Oximetry 90 L 01/02/17 04:00 Oxygen-Last Documented O2 Percentage 2 Liters = 28% Intake & Output: Intake & Output 12/30/16 12/31/16 01/01/17 01/02/17 11:59 11:59 11:59 11:59 Intake Total 2551 3292 2859 Output Total 400 2650 800 1300 Balance -400 -99 2492 1559 - Lab Result Diagrams: 01/02/17 04:56 01/02/17 04:56 Lab Results-Last 24 Hrs: Lab Results-Last 24 Hours 01/02/17 01/02/17 Range/Units 04:56 04:56 WBC 8.9 (4.0-10.5) K/mm3 RBC 4.23 (4.1-5.4) M/mm3 Hgb 12.8 (12.0-16.0) gm/dl Hct 40.4 (35-47) % MCV 95.5 (78-100) fl MCH 30.3 (26-32) pg MCHC 31.7 L (32-36) g/dl RDW 12.6 (11.5-14.0) % Plt Count 112 L (150-450) K/mm3 MPV 12.0 H (6-9.5) fl Gran % 79.4 H (36.0-66.0) % Lymphocytes % 11.1 L (24.0-44.0) % Monocytes % 9.3 (0.0-12.0) % Eosinophils % 0.1 (0.00-5.0) % Basophils % 0.1 (0.0-0.4) % Basophils # 0.01 (0-0.4) Sodium 138 (136-145) mEq/L Potassium 3.8 (3.5-5.1) mEq/L Chloride 104 (98-107) mEq/L Carbon Dioxide 25.7 (21-32) mEq/L Anion Gap 12.4 (5-15) MEQ/L BUN 7 L (9-20) mg/dL Creatinine 0.81 (0.55-1.30) mg/dl Estimated GFR > 60 ML/MIN Glucose 120 H (70-110) MG/DL Calcium 8.5 (8.5-10.1) mg/dL Total Bilirubin 0.4 (0.2-1.0) mg/dL AST 17 (15-37) U/L ALT 17 (12-78) U/L Alkaline Phosphatase 107 (46-116) U/L Serum Total Protein 6.1 L (6.4-8.2) gm/dL Albumin 2.9 L (3.4-5.0) g/dL Discharge Exam General Appearance: no apparent distress, alert Neurologic Exam: alert, oriented x 3, cooperative, normal mood/affect, nml cerebellar function, sensation nml, No motor deficits Skin Exam: normal color, warm, dry Respiratory Exam: normal breath sounds, lungs clear, No respiratory distress Cardiovascular Exam: regular rate/rhythm, normal heart sounds Gastrointestinal/Abdomen Exam: soft, No tenderness, No mass Extremity Exam: normal inspection, normal range of motion Final Diagnosis/Problem List - Final Discharge Diagnosis/Problem (1) Ileus Current Visit: Yes Status: Acute (2) Acute abdominal pain Current Visit: Yes Status: Acute (3) Anxiety Current Visit: No Status: Acute (4) Irritable bowel syndrome (IBS) Current Visit: Yes Status: Acute - Discharge Disposition: Home, Self-Care Condition: Good Prescriptions: New Docusate Sodium [Colace] 100 mg PO BID #60 capsule Hydrocodone Bit/Acetaminophen [[place] 5/325Mg] 1 tab PO Q4-6HPRN PRN #20 tablet PRN Reason: Pain Continue Dicyclomine HCl 20 mg [Bentyl 20 mg] 20 mg PO QID Lorazepam 0.5 mg [Ativan 0.5 MG] 0.5 mg PO TID PRN PRN Reason: Anxiety Lisinopril 10 mg [Zestril 10 MG] 10 mg PO HS Peppermint Oil [Ibgard] 90 mg PO TIDPRN Acetaminophen [Tylenol] 650 mg PO Q6HPRN PRN PRN Reason: pain Follow up with: HITESH DUBON MD [Primary Care Provider] -
[2017-01-02] MEDS: Flonase NASAL NS SCH (09:37)
[2017-01-02] MEDS: CLARITIN 10 MG PO SCH (09:37)
[2017-01-02] MEDS: Pepcid 20 MG VIAL IV SCH (09:38)
[2017-01-02] MEDS: LEVOFLOXACIN 750MG/150ML D5W 150 ML IV SCH (09:38)
[2017-01-02 13:03] VITALS: BP 127/78; PULSE 76; O2SAT 94
== END 2017-01-02 11:45 | disposition home or self-care (01) | DRG 390 ==
LOC: ED 19:35 → MED SURG 22:31 → OBSVTOIN 12-30 08:52
PROVIDERS: ADMIT Family Medicine; ATTEND Family Medicine
DX: K56.7 Ileus, unspecified (principal); R10.9 Unspecified abdominal pain; F41.9 Anxiety disorder, unspecified; K58.9 Irritable bowel syndrome, unspecified; I10 Essential (primary) hypertension; M19.90 Unspecified osteoarthritis, unspecified site; K21.9 Gastro-esophageal reflux disease without esophagitis; I34.1 Nonrheumatic mitral (valve) prolapse; Z79.899 Other long term (current) drug therapy
CPT/HCPCS: 36000; 36415; 74177; 80053; 81000; 83605; 83690; 85025; 87086; 93005; 96360; 96361; 96365; 96374; 96375; 99285; G0378; J1170; J1956; J2405; J2550; P9612

== ENCOUNTER 2019-07-14 23:31 | Emergency (ER) | payer MEDICARE ==
[2019-07-14] MEDS ORDERED: Hydromorphone 1 mg/ml Ampule IV ONE (23:40)
[2019-07-14] MEDS ORDERED: Decadron 4 MG INJ IV ONE (23:40)
--- NOTE | 2019-07-14 23:42 | ERPHSYRPT ---
- History of Present Illness Time Seen by Provider: 07/14/19 23:35 Source: patient, EMS Exam Limitations: no limitations Physician History: Patient has chronic right lateral hip pain for multiple years that she gets steroid injections by her physician. Patient began having a flare-up of her pain 2 weeks ago, with worse pain over today. She was seen by her physician in the morning of 07/14/2019, but the right lateral hip pain was not treated due to patient having an injection one month ago tomorrow. She was told to try Tylenol. Patient had no new injuries to the right hip in the past two weeks. Timing/Duration: week(s) (2) Occured at: home Context: other (no injury, no increased activity) Quality: aching, sharpness Hip Pain Location: hip (R) Severity of Pain-Max: severe Severity of Pain-Current: severe (better currently as it has gone done from a 10 /10 to a 7/10) Symptoms prior to fall: none Associated Symptoms: No fatigue, No fever, No groin pain, No insomnia, No lumps , No muscle aches, No pain radiating to knees, No trouble walking Allergies/Adverse Reactions: ibuprofen Adverse Reaction (Mild, Verified 07/14/19 23:37) stomach upset Home Medications: Dicyclomine HCl 20 mg [Bentyl 20 mg] 20 mg PO QID PRN 12/29/16 [History] Lisinopril 10 mg [Zestril 10 MG] 10 mg PO HS 12/29/16 [History] Lorazepam 0.5 mg [Ativan 0.5 MG] 0.5 mg PO TID PRN 12/29/16 [History] Docusate Sodium [Colace] 100 mg PO BID PRN 07/14/19 [History] Hx Tetanus, Diphtheria Vaccination/Date Given: No Hx Influenza Vaccination/Date Given: No Hx Pneumococcal Vaccination/Date Given: No - Review of Systems Constitutional: No Fever, No Chills Ears, Nose, & Throat: No Symptoms Respiratory: No Cough, No Dyspnea Cardiac: No Chest Pain, No Edema, No Syncope Abdominal/Gastrointestinal: No Abdominal Pain, No Nausea, No Vomiting, No Diarrhea, No Hematemesis, No Hematochezia, No Melena Genitourinary Symptoms: No Dysuria, No Hematuria, No Flank Pain Musculoskeletal: No Back Pain, No Neck Pain, No Joint Pain Skin: No Rash, No Skin Lesions Neurological: No Dizziness, No Focal Weakness, No Parasthesia, No Sensory Changes, No Tremors Psychological: No Symptoms Endocrine: No Symptoms Hematologic/Lymphatic: No Easy Bleeding, No Easy Bruising All Other Systems: Reviewed and Negative - Past Medical History Pertinent Past Medical History: Yes Neurological History: No Pertinent History ENT History: No Pertinent History Cardiac History: Hypertension, Other Respiratory History: No Pertinent History Endocrine Medical History: No Pertinent History Musculoskeletal History: Arthritis, Osteoarthritis GI Medical History: GERD, Hemorrhoids, Irritable Bowel History: No Pertinent History Psycho-Social History: Anxiety Female Reproductive Disorders: Abnormal Uterine Bleeding Other Medical History: anemia, mitral valve prolapse - Past Surgical History Past Surgical History: Yes Neuro Surgical History: No Pertinent History Cardiac: No Pertinent History Respiratory: No Pertinent History Gastrointestinal: Hemorrhoidectomy Genitourinary: No Pertinent History Musculoskeletal: No Pertinent History Female Surgical History: Hysterectomy, Tubal Ligation Other Surgical History: tubal - Social History Smoking Status: Never smoker Exposure to second hand smoke: No Drug Use: none Patient Lives Alone: No - Nursing Vital Signs Nursing Vital Signs: Initial Vital Signs Temperature 97.9 F 07/14/19 23:40 Pulse Rate 74 07/14/19 23:40 Respiratory Rate 18 07/14/19 23:40 Blood Pressure 163/77 07/14/19 23:40 O2 Sat by Pulse Oximetry 95 07/14/19 23:40 Pain Scale Pain Intensity 5 - Physical Exam General Appearance: no apparent distress, alert Eye Exam: PERRL/EOMI Ears, Nose, Throat Exam: normal ENT inspection, moist mucous membranes Neck Exam: normal inspection, non-tender, supple Respiratory Exam: normal breath sounds, lungs clear, No chest tenderness, No respiratory distress Cardiovascular Exam: regular rate/rhythm, normal peripheral pulses, No edema Gastrointestinal Exam: soft, normal bowel sounds, No tenderness, No distention, No guarding Back Exam: other (large kyphosis), No CVA tenderness, No vertebral tenderness Extremity Exam: normal inspection, normal range of motion, pelvis stable, other (positive tenderness over right greater trochanteric bursa which illicits patient's pain), No woodall, No contusions, No calf tenderness, No deformities, No parasthesia, No el's sign, No inflammation, No joint swelling, No limited range of motion, No pedal edema, No swelling Peripheral Pulses: dorsalis-pedis (R): 2+, dorsalis-pedis (L): 2+ Neurologic Exam: alert, oriented x 3, cooperative, senior living advisor II-XII nml as tested, nml cerebellar function, sensation nml, No motor deficits Skin Exam: normal color, warm, dry, No rash SpO2 Interpretation: normal O2 Delivery: Room Air - Course Nursing assessment & vital signs reviewed: Yes - Radiology Exams Right Hip X-ray Interpretation: Interpreted by me, Reviewed by me, No Fracture, Nml Alignment, Nml Soft Tissues, Other (some arthritic changes in the right hip) Ordered Tests: Active Orders 24 hr Category Date Time Status HIP UNI (2V) INCL PEL IF DONE Stat Exams 07/14/19 00:05 Taken Medication Summary Discontinued Medications Generic Name Dose Route Start Last Admin Trade Name Freq PRN Reason Stop Dose Admin Dexamethasone Sodium Phosphate 4 mg 07/14/19 23:40 07/14/19 23:53 Decadron 4 Mg Inj IV 07/14/19 23:41 4 mg STAT ONE Administration Dexamethasone Sodium Phosphate Confirm 07/14/19 23:52 Decadron 4 Mg Inj Administered 07/14/19 23:53 Dose 4 mg .ROUTE .STK-MED ONE Hydromorphone HCl 1 mg 07/14/19 23:40 07/14/19 23:53 Hydromorphone 1 Mg/Ml Ampule IV 07/14/19 23:41 1 mg STAT ONE Administration Hydromorphone HCl Confirm 07/14/19 23:52 Hydromorphone 1 Mg/Ml Ampule Administered 07/14/19 23:53 Dose 1 mg .ROUTE .STK-MED ONE - Progress Progress: improved Progress Note: 07/15/19 00:51 Patient's pain is significantly improved with blood pressure improving with better pain control. Counseled pt/family regarding: lab results, diagnosis, need for follow-up, rad results - Departure Departure Disposition: Home Clinical Impression: Right hip pain, Greater trochanteric bursitis of right hip Hypertension Qualifiers: Hypertension type: essential hypertension Qualified Code(s): I10 - Essential ( primary) hypertension Condition: Good Critical Care Time: No Referrals: HITESH DUBON MD [Primary Care Provider] - 07/15/19 (call to discuss hip pain) Instructions: Chronic Pain (DC), Hip Bursitis (DC), Hip Pain (DC), High Blood Pressure (DC) Additional Instructions: Your x-rays were negative for any new fractures or dislocations. Make certain to followup with your doctor in the morning of 07/15/2019 to determine the need for any other pain management techniques as most of your tenderness is over the right greater trochanteric bursa sac where you have had injections in the past. Return immediately back to the Emergency Department if any worse pain, inability to walk, any fever, any new problems of bowel or bladder, or any other signs or symptoms that are concerning that were not present at today's emergency room visit for immediate reevaluation in the emergency department.
[2019-07-14] MEDS ORDERED: Hydromorphone 1 mg/ml Ampule ONE (23:52)
[2019-07-14] MEDS ORDERED: Decadron 4 MG INJ ONE (23:52)
[2019-07-15 00:50] VITALS: BP 146/87
[2019-07-15 01:01] VITALS: PULSE 63; O2SAT 94
--- NOTE | 2019-07-15 10:29 | XRAY ---
Indication: Pain. No known injury. Comparison: January 19, 2015. AP pelvis and 2 views of the right hip again demonstrates mild Paget's appearance of the right innominate bone and minimal joint space narrowing. No other bony, articular, or soft tissue abnormalities.
== END 2019-07-15 01:16 | disposition home or self-care (01) ==
LOC: ED 23:31
DX: M25.551 Pain in right hip (principal); M70.61 Trochanteric bursitis, right hip
CPT/HCPCS: 73502; 96374; 96375; 99284; J1100; J1170

== ENCOUNTER 2019-07-16 02:57 | Observation (INO) | payer MEDICARE ==
[2019-07-16] MEDS ORDERED: Hydromorphone 1 mg/ml Ampule IV ONE (02:58)
[2019-07-16] MEDS ORDERED: BENADRYL 50 MG/ML IV ONE (03:02)
--- NOTE | 2019-07-16 03:02 | ERPHSYRPT ---
- History of Present Illness Time Seen by Provider: 07/16/19 02:58 Source: patient, family, EMS Exam Limitations: no limitations Physician History: history of chronic right hip pain. Was seen here last night for the same thing. Came back because of the persistent and severe right hip pain. Pain increases with the moment. No history of fall. Method of Injury: unknown Occurred: other (3 year) Quality: constant Severity of Pain-Max: moderate Severity of Pain-Current: severe Lower Extremities Pain: hip: right Modifying Factors: Improves With: movement Associated Symptoms: unable to bear weight Allergies/Adverse Reactions: ibuprofen Adverse Reaction (Mild, Verified 07/16/19 03:22) stomach upset Home Medications: Dicyclomine HCl 20 mg [Bentyl 20 mg] 20 mg PO QID PRN 12/29/16 [History] Lisinopril 10 mg [Zestril 10 MG] 10 mg PO HS 12/29/16 [History] Lorazepam 0.5 mg [Ativan 0.5 MG] 0.5 mg PO TID PRN 12/29/16 [History] Docusate Sodium [Colace] 100 mg PO BID PRN 07/14/19 [History] Hx Tetanus, Diphtheria Vaccination/Date Given: No Hx Influenza Vaccination/Date Given: No Hx Pneumococcal Vaccination/Date Given: No - Review of Systems Constitutional: No Fever, No Chills Eyes: No Symptoms Ears, Nose, & Throat: No Symptoms Respiratory: No Cough, No Dyspnea Cardiac: No Chest Pain, No Edema, No Syncope Abdominal/Gastrointestinal: No Abdominal Pain, No Nausea, No Vomiting, No Diarrhea Genitourinary Symptoms: No Dysuria Musculoskeletal: Joint Pain, Other (right hip pain), No Back Pain, No Neck Pain Skin: No Rash Neurological: No Dizziness, No Focal Weakness, No Sensory Changes Psychological: No Symptoms Endocrine: No Symptoms All Other Systems: Reviewed and Negative - Past Medical History Pertinent Past Medical History: Yes Neurological History: No Pertinent History ENT History: No Pertinent History Cardiac History: Hypertension, Other Respiratory History: No Pertinent History Endocrine Medical History: No Pertinent History Musculoskeletal History: Arthritis, Osteoarthritis GI Medical History: GERD, Hemorrhoids, Irritable Bowel History: No Pertinent History Psycho-Social History: Anxiety Female Reproductive Disorders: Abnormal Uterine Bleeding Other Medical History: anemia, mitral valve prolapse - Past Surgical History Past Surgical History: Yes Neuro Surgical History: No Pertinent History Cardiac: No Pertinent History Respiratory: No Pertinent History Gastrointestinal: Hemorrhoidectomy Genitourinary: No Pertinent History Musculoskeletal: No Pertinent History Female Surgical History: Hysterectomy, Tubal Ligation Other Surgical History: tubal - Social History Smoking Status: Never smoker Exposure to second hand smoke: No Drug Use: none Patient Lives Alone: No - Nursing Vital Signs Nursing Vital Signs: Initial Vital Signs Temperature 98.0 F 07/16/19 03:26 Pulse Rate 82 07/16/19 03:26 Respiratory Rate 18 07/16/19 03:26 Blood Pressure 146/87 07/16/19 03:26 O2 Sat by Pulse Oximetry 96 07/16/19 03:26 Pain Scale Pain Intensity 3 - Physical Exam General Appearance: alert Eyes, Ears, Nose, Throat Exam: moist mucous membranes Neck Exam: non-tender, supple Cardiovascular/Respiratory Exam: chest non-tender, normal breath sounds, regular rate/rhythm, no respiratory distress Gastrointestinal/Abdominal Exam: non-tender, guarding Back Exam: normal inspection, No vertebral tenderness Hips Exam: right: limited range of motion, pain, other (Painful ROM) Legs Exam: right leg: limited range of motion, bilateral leg: non-tender, normal inspection Ankle Exam: bilateral ankle: non-tender, normal inspection, normal range of motion Foot Exam: bilateral foot: non-tender, normal inspection Neuro/Tendon Exam: normal sensation, normal motor functions Mental Status Exam: alert, oriented x 3, cooperative Skin Exam: normal color, warm, dry SpO2 Interpretation: normal - Course Nursing assessment & vital signs reviewed: Yes - CT Exams Lower Extremity CT Interpretation: Other (Nothing acute) Ordered Tests: Active Orders 24 hr Category Date Time Status IV Insertion STAT Care 07/16/19 02:58 Active LOWER EXTREMITY WO CONTRAST [CT] Stat Exams 07/16/19 02:59 Taken CBC W DIFF Stat Lab 07/16/19 05:04 Ordered CMP Stat Lab 07/16/19 05:03 Ordered UA W/RFX UR CULTURE Stat Lab 07/16/19 05:03 Uncollected Medication Summary Discontinued Medications Generic Name Dose Route Start Last Admin Trade Name Freq PRN Reason Stop Dose Admin Diphenhydramine HCl 25 mg 07/16/19 03:02 07/16/19 03:16 Benadryl 50 Mg/Ml IV 07/16/19 03:03 25 mg STAT ONE Administration Diphenhydramine HCl Confirm 07/16/19 03:14 Benadryl 50 Mg/Ml Administered 07/16/19 03:15 Dose 50 mg .ROUTE .STK-MED ONE Hydromorphone HCl 1 mg 07/16/19 02:58 07/16/19 03:16 Hydromorphone 1 Mg/Ml Ampule IV 07/16/19 02:59 1 mg STAT ONE Administration Hydromorphone HCl Confirm 07/16/19 03:14 Hydromorphone 1 Mg/Ml Ampule Administered 07/16/19 03:15 Dose 1 mg .ROUTE .STK-MED ONE - Progress Progress: improved (Feels little better) Progress Note: 07/16/19 05:05 reason for admission-failed outpatient treatment. Discussed with : Tanmay Will see patient in: hospital (observation) Counseled pt/family regarding: diagnosis, rad results - Departure Departure Disposition: Observation Clinical Impression: Right hip pain Condition: Stable Critical Care Time: No Referrals: HITESH DUBON MD [Primary Care Provider] -
[2019-07-16] MEDS ORDERED: BENADRYL 50 MG/ML ONE (03:14)
[2019-07-16] MEDS ORDERED: Hydromorphone 1 mg/ml Ampule ONE (03:14)
[2019-07-16 05:10] LABS: Hematocrit 42.3 % (35-47); Hemoglobin 14.1 gm/dl (12.0-16.0); Mean Cell Volume 93.2 fl (78-100); Mean Corpuscular Hemoglobin 31.1 pg (26-32); Mean Corpuscular Hgb Concent. 33.3 g/dl (32-36); Mean Platelet Volume 11.4 fl (6-9.5); Platelet Count 127 K/mm3 (150-450); Red Blood Count 4.54 M/mm3 (4.1-5.4); Red Cell Distribution Width 13.2 % (11.5-14.0); White Blood Count 15.8 K/mm3 (4.0-10.5)
[2019-07-16 05:15] LABS: ALBUMIN 3.1 g/dL (3.5-5.0); ANION GAP 14.1 MEQ/L (5-15); BILIRUBIN,TOTAL 0.7 mg/dL (0.2-1.3); Calcium 9.1 mg/dL (8.4-10.2); Creatinine 1 1.1 mg/dL (0.52-1.04); Potassium 3.9 mmol/L (3.5-5.1); Total Protein 6.6 g/dL (6.3-8.2)
[2019-07-16] MEDS ORDERED: Zofran 4 MG/2 ML VIAL IV PRN (05:32)
[2019-07-16] MEDS ORDERED: MORPHINE SULFATE 2 MG INJ IV PRN (05:32)
[2019-07-16 05:35] LABS: Appearance SLIGHTLY CLOUDY (CLEAR); Bacteria RARE /HPF (NEGATIVE); Bilirubin NEGATIVE (NEGATIVE); Blood MODERATE Ery/ul (0-5); Epithelial Cells RARE /HPF (FEW); Glucose NEGATIVE (NEGATIVE); Ketones NEGATIVE (NEGATIVE); Leukocyte Esterase MODERATE (NEGATIVE); Mucus SLIGHT /HPF (NEGATIVE); Nitrite NEGATIVE (NEGATIVE); Protein,Urine Dip 100 (Negative); RBC 26-50 /HPF (0-2); Specific Gravity 1.026 (1.005-1.025); Urobilinogen 2 mg/dL (0-1); WBC >100 /HPF (0-5)
[2019-07-16 06:30] LABS: Lymphocytes 4 % (24-44); Monocyte 2 % (0.0-12.0); Neutrophils 94 % (36.0-66.0); Total Cells Counted 100
[2019-07-16 06:32] LABS: Platelet Estimate NORMAL (NORMAL)
--- NOTE | 2019-07-16 09:02 | XRAY ---
Indication: Right hip pain. Multiple contiguous axial images obtained through the right hip. Sagittal and coronal reformatted images obtained. Comparison: December 29, 2016. More recent right hip radiograph July 14, 2019. Osseous structures remain demineralized. Right innominate bone again demonstrates mild Paget's appearance. Stable mild joint space narrowing. No acute fracture, dislocation, or suspicious bony lesions. Visualized noncontrasted soft tissues unremarkable. Impression: 1. Stable right innominate bone Paget's disease, osteopenia, and right hip joint space narrowing. 2. Remaining CT right hip is negative. Comment: Preliminary interpretation was made by [facility]. No critical discrepancy. CTDI 74.34
[2019-07-16] MEDS ORDERED: BENTYL 20 MG PO PRN (10:40)
[2019-07-16] MEDS ORDERED: Colace 100 MG PO PRN (10:40)
[2019-07-16] MEDS ORDERED: Ativan 0.5 MG PO PRN (10:40)
[2019-07-16] MEDS ORDERED: Fosamax 70 MG PO SCH (10:45)
[2019-07-16] MEDS: Voltaren GEL TOP SCH ×3 (11:51→21:16)
[2019-07-16] MEDS: NORCO 5/325 MG PO PRN ×3 (13:10→22:49)
[2019-07-16] MEDS: Calcium 500MG W/Vit D Tablet PO SCH (15:50)
[2019-07-16] MEDS: AMOXIL 500 MG PO SCH (21:16)
[2019-07-16] MEDS: Sodium Chloride 0.9% 10 ML FLUSH Syringe IV SCH (21:26)
[2019-07-16] MEDS ORDERED: Zestril 10 MG PO SCH (22:00)
[2019-07-17] MEDS: Sodium Chloride 0.9% 10 ML FLUSH Syringe IV SCH (06:31)
[2019-07-17] MEDS: Calcium 500MG W/Vit D Tablet PO SCH (08:10)
[2019-07-17] MEDS: NORCO 5/325 MG PO PRN ×2 (08:24→13:02)
[2019-07-17] MEDS: Voltaren GEL TOP SCH (10:17)
[2019-07-17] MEDS: AMOXIL 500 MG PO SCH (10:17)
[2019-07-17 14:40] VITALS: BP 130/72; PULSE 72; O2SAT 95
--- NOTE | 2019-07-18 10:14 | HP ---
CHIEF COMPLAINT: Right hip pain. HISTORY OF PRESENT ILLNESS: The patient is a 68 year-old white female who has been having problems with right hip pain for the past several months to years. She has received several injections of steroids in the hip which have been recently not helpful any longer. She was seen by Delia Garcia in the office and suggested she see orthopedic nurse practitioner for in injection in the hip again this . The patient's pain got so bad that she presented herself to the emergency room for treatment, was evaluated and sent home but returned for the pain once again and was subsequently admitted to the hospital for further evaluation and management of her retractable hip pain. PAST MEDICAL/SURGICAL HISTORY: Otherwise significant for gastroesophageal reflux disease, hemorrhoids, irritable bowel, osteoarthritis, anemia, mitral valve prolapse. She has had hysterectomy and tubal ligation. HOME MEDICATIONS: Bentyl 20 mg four times a day, lisinopril 10 mg a day, lorazepam 0.5 mg t.i.d. PRN, docusate sodium. ALLERGIES: IBUPROFEN WITH UPSET STOMACH. PHYSICAL EXAMINATION: The patient's vital signs on admission showed temperature 98.0F, pulse 82, respiratory rate 18 and blood pressure 146/87. O2 saturation 96% on room air. HEENT: Normocephalic, atraumatic. Pupils equal round reactive to light. Extraocular movements intact. Oropharynx is pink and moist. NECK: Supple without lymphadenopathy, thyromegaly or JVD. CHEST: Clear to auscultation. HEART: Regular rate and rhythm. ABDOMEN: Soft. No palpable masses. EXTREMITIES: No cyanosis, clubbing or edema. There is tenderness over the greater trochanter on the right hip. NEUROLOGIC: She is alert and oriented x3. LAB DATA AND TESTS: Her laboratory studies did show UA with greater than 100 white blood cells per high power field. She apparently been treated empirically with amoxicillin for suspected urinary tract infection but no culture. UA was obtained previously. The patient was noted to have a white count elevation of 15,800 and her hemoglobin 14.1, PLT count 127,000. There does appear to be a left shift of 94% granulocytes. The patient's metabolic panel showed glucose 114, BUN 25, creatinine 1.10. Electrolytes were normal. Liver enzymes were fairly normal as well. She had CT scan of the hip, abdomen and pelvis which showed no acute findings. The bone and joint findings otherwise showed appearance of right pelvis suggestion of Paget's disease. Similar previous exam otherwise unremarkable. ASSESSMENT: We admitted the patient for pain control with ice, Voltaren gel and [place] 5/325 mg for pain control while we are pending an orthopedic evaluation for patient's hip pain and possible Paget's disease.
--- NOTE | 2019-07-18 14:02 | DS ---
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 2) URINARY TRACT INFECTION. HOSPITAL COURSE: The patient is a 68 year-old white female who had been having problems with hip pain. She has had this for quite some time. She apparently had known about Paget's disease of the hip but she had failed to mention it to me on initial admission. CT scan did show again the Paget's disease of the hip. The patient had received steroid injections in the hip which had improved initially but had not been helpful more recently. The patient was admitted to the hospital for evaluation and management and started on Fosamax 70 mg weekly and Citracal b.i.d. for Paget's disease but she is also getting [place] 5/325 mg for pain control. We did attempt to also give her Voltaren gel which she did not like the sensation on her leg and felt that it burned too much to use although she does feel that the ice does help as well. The patient was observed to be able to walk to the bathroom without assistance on her own. However when her was in the room she was a little bit more reluctant to get up and move around due to pain. I believe somewhat for the sympathy factor. The patient's laboratory studies otherwise did show her urine to be infected. She is already on amoxicillin which was started empirically without obtaining urine or urine culture. She does have greater than 100 white blood cells per high power field. We are pending a culture but it will likely unhelpful since she is already on amoxicillin. It was also noted her initial white count was 15,800, hemoglobin 14.1, PLT count 127,000. She had glucose 114, BUN 25, creatinine 1.10. Electrolytes were normal. Her alkaline phosphatase was somewhat elevated at 193 consistent with the above process and again the CT scan otherwise showed findings consistent with Paget's disease of the hip. DISCHARGE PLANS: The patient discharged home on [place] 5/325 mg every four hours PRN for pain, ice and she was suggested to try Zostrix cream. We will attempt to get her an appointment to see an orthopedic doctor in follow up and we will continue her on Fosamax and Citracal.
== END 2019-07-17 13:45 | disposition home or self-care (01) ==
LOC: ED 02:57 → MED SURG 05:26
PROVIDERS: ADMIT Family Medicine; ATTEND Family Medicine
DX: M88.851 Osteitis deformans of right thigh (principal); N39.0 Urinary tract infection, site not specified; Z79.899 Other long term (current) drug therapy
CPT/HCPCS: 36000; 36415; 73700; 80053; 81001; 85025; 87086; 94760; 96374; 96375; 99285; G0378; J1170; J1200; J2270; A9270-GY

== ENCOUNTER 2020-05-26 10:22 | Emergency (ER) | payer MEDICARE ==
[2020-05-26] MEDS ORDERED: Sodium Chloride 0.9% 1000 ML 1,000 ML IV STA (10:36)
[2020-05-26] MEDS ORDERED: Ativan 1 MG PO ONE (10:37)
[2020-05-26] MEDS ORDERED: Sodium Chloride 0.9% 1000 ML 1,000 ML ONE (10:39)
[2020-05-26] MEDS ORDERED: Ativan 1 MG ONE (10:39)
[2020-05-26 11:24] LABS: Absolute Neutrophil Ct (ANC) 10.42 (1.4-6.9); BASOPHIL % 0.2 % (0.0-0.4); Basophil (Absolute #) 0.02 (0-0.4); Eosinophil % 0.1 % (0.00-5.0); Eosinophil (Absolute #) 0.01 (0-0.5); Hematocrit 45.1 % (35-47); Hemoglobin 14.2 gm/dl (12.0-16.0); Lymphocyte (Absolute #) 0.81 (1.0-4.6); Lymphocytes % 6.7 % (24.0-44.0); Mean Cell Volume 101.3 fl (78-100); Mean Corpuscular Hemoglobin 31.9 pg (26-32); Mean Corpuscular Hgb Concent. 31.5 g/dl (32-36); Mean Platelet Volume 11.1 fl (7.5-11.0); Monocytes % 7.4 % (0.0-12.0); Neutrophil % 85.6 % (36.0-66.0); Platelet Count 126 K/mm3 (150-450); Red Blood Count 4.45 M/mm3 (4.1-5.4); Red Cell Distribution Width 12.7 % (11.5-14.0); White Blood Count 12.2 K/mm3 (4.0-10.5)
[2020-05-26 11:35] LABS: ALBUMIN 3.8 g/dL (3.5-5.0); ANION GAP 12.7 MEQ/L (5-15); BILIRUBIN,TOTAL 0.5 mg/dL (0.2-1.3); Calcium 9.3 mg/dL (8.4-10.2); Creatinine 1 1.03 mg/dL (0.52-1.04); Potassium 3.3 mmol/L (3.5-5.1); Total Protein 6.3 g/dL (6.3-8.2)
--- NOTE | 2020-05-26 11:36 | ERPHSYRPT ---
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 She took Xanax and her symptoms started to improve. Patient was tachypneic and tachycardic on EMS arrival and is gradually improving. She denies any chest pain or palpitations. Denies any shortness of breath or cough. She also denies fever. Denies any abdominal pain nausea vomiting or diarrhea. Timing/Duration: today, sudden, improved Severity: moderate Modifying Factors: Improves With: rest Associated Symptoms: shortness of breath, No nausea, No vomiting, No abdominal pain, No cough, No chest pain Allergies/Adverse Reactions: ibuprofen Adverse Reaction (Mild, Verified 05/26/20 10:33) stomach upset Home Medications: Lisinopril 10 mg [Zestril 10 MG] 10 mg PO HS 12/29/16 [History] Lorazepam 0.5 mg [Ativan 0.5 MG] 0.5 mg PO BID 12/29/16 [History] Acetaminophen 325 mg [Tylenol 325 mg] 325 mg PO DAILY PRN 05/26/20 [History] Hx Tetanus, Diphtheria Vaccination/Date Given: No Hx Influenza Vaccination/Date Given: No Hx Pneumococcal Vaccination/Date Given: No Travel Risk - International Travel Have you traveled outside of the country in past 3 weeks: No - Coronavirus Screening Are you exhibiting any of the following symptoms?: No Close contact with a COVID-19 positive Pt in past 14-21 Days: No - Review of Systems Constitutional: Chills Eyes: No Symptoms Ears, Nose, & Throat: No Symptoms Respiratory: No Symptoms Cardiac: No Symptoms Abdominal/Gastrointestinal: No Symptoms Genitourinary Symptoms: No Symptoms Musculoskeletal: No Symptoms Skin: No Symptoms Neurological: No Symptoms Psychological: Anxiety Endocrine: No Symptoms Hematologic/Lymphatic: No Symptoms Immunological/Allergic: No Symptoms - Past Medical History Pertinent Past Medical History: Yes Neurological History: No Pertinent History ENT History: No Pertinent History Cardiac History: Hypertension, Other Respiratory History: No Pertinent History Endocrine Medical History: No Pertinent History Musculoskeletal History: Arthritis, Osteoarthritis GI Medical History: GERD, Hemorrhoids, Irritable Bowel History: No Pertinent History Psycho-Social History: Anxiety Female Reproductive Disorders: Abnormal Uterine Bleeding Other Medical History: anemia, mitral valve prolapse - Past Surgical History Past Surgical History: Yes Neuro Surgical History: No Pertinent History Cardiac: No Pertinent History Respiratory: No Pertinent History Gastrointestinal: Hemorrhoidectomy Genitourinary: No Pertinent History Musculoskeletal: No Pertinent History Female Surgical History: Hysterectomy, Tubal Ligation Other Surgical History: tubal - Social History Smoking Status: Never smoker Exposure to second hand smoke: No Drug Use: none Patient Lives Alone: No - Female History Hx Now: No - Nursing Vital Signs Nursing Vital Signs: Initial Vital Signs Temperature 98.3 F 05/26/20 10:23 Pulse Rate 111 H 05/26/20 10:23 Respiratory Rate 30 H 05/26/20 10:23 Blood Pressure 164/97 05/26/20 10:23 O2 Sat by Pulse Oximetry 95 05/26/20 10:23 Pain Scale Pain Intensity 0 - Physical Exam General Appearance: no apparent distress, alert, anxiety Eye Exam: PERRL/EOMI, eyes nml inspection Ears, Nose, Throat Exam: normal ENT inspection, TMs normal, pharynx normal Neck Exam: normal inspection, non-tender, supple, full range of motion Respiratory Exam: normal breath sounds, lungs clear Cardiovascular Exam: regular rate/rhythm, normal heart sounds Gastrointestinal/Abdomen Exam: soft Back Exam: normal inspection Extremity Exam: normal inspection Neurologic Exam: alert, oriented x 3, cooperative Skin Exam: normal color SpO2 Interpretation: normal SpO2: 99 - Course Nursing assessment & vital signs reviewed: Yes EKG Interpreted by Me: RATE (101), Sinus Tach, NORMAL AXIS, NORMAL INTERVALS, NO RMAL QRS (Nonspecific T wave changes in lateral leads), Other (Can EKG time 2:43 PM. Rate 79. Sinus rhythm. Normal axis. Normal intervals. Normal QRS. Reversal of T wave changes seen earlier.) Ordered Tests: Active Orders 24 hr Category Date Time Status EKG-ER Only STAT Care 05/26/20 10:36 Active IV Insertion STAT Care 05/26/20 10:36 Active Oxygen-ED Only Nasal Cannula 2 lpm Care 05/26/20 12:11 Active CHEST 1 VIEW (PORTABLE) Stat Exams 05/26/20 10:36 Taken CHEST WITH CONTRAST [CT] Stat Exams 05/26/20 12:59 Ordered CBC W DIFF Stat Lab 05/26/20 11:15 Completed CMP Stat Lab 05/26/20 11:15 Completed CULTURE,URINE Stat Lab 05/26/20 12:02 Received D-DIMER QUANTITATIVE Stat Lab 05/26/20 10:40 Completed Lactic Acid Stat Lab 05/26/20 10:36 Completed Lactic Acid Stat Lab 05/26/20 13:22 Completed TROPONIN Q3H Lab 05/26/20 11:15 Completed TROPONIN Q3H Lab 05/26/20 14:00 Completed TROPONIN Q3H Lab 05/26/20 16:45 Ordered TROPONIN Q3H Lab 05/26/20 19:45 Ordered TROPONIN Q3H Lab 05/26/20 22:45 Ordered UA W/RFX UR CULTURE Stat Lab 05/26/20 12:02 Completed Transfer Order Routine Transfer 05/26/20 Ordered Medication Summary Discontinued Medications Generic Name Dose Route Start Last Admin Trade Name Freq PRN Reason Stop Dose Admin Aspirin 324 mg 05/26/20 12:03 05/26/20 12:08 Baby Aspirin 81 Mg Chew PO 05/26/20 12:04 324 mg STAT ONE Administration Aspirin Confirm 05/26/20 13:42 Baby Aspirin 81 Mg Chew Administered 05/26/20 13:43 Dose 324 mg .ROUTE .STK-MED ONE Sodium Chloride 1,000 mls @ 999 mls/hr 05/26/20 10:36 05/26/20 11:50 Sodium Chloride 0.9% 1000 Ml IV 05/26/20 11:36 Infused .Q1H1M STA Infusion Sodium Chloride Confirm 05/26/20 10:39 Sodium Chloride 0.9% 1000 Ml Administered 05/26/20 10:40 Dose 1,000 mls @ ud .ROUTE .STK-MED ONE Ceftriaxone Sodium/Dextrose 1 g in 50 mls @ 100 mls/hr 05/26/20 12:32 05/26/20 13:05 Rocephin 1 Gm-D5w 50 Ml Bag IV 05/26/20 13:01 Infused STAT STA Infusion Ceftriaxone Sodium/Dextrose Confirm 05/26/20 12:35 Rocephin 1 Gm-D5w 50 Ml Bag Administered 05/26/20 12:36 Dose 1 g in 50 mls @ ud IV .STK-MED ONE Lorazepam 1 mg 05/26/20 10:37 05/26/20 10:40 Ativan 1 Mg PO 05/26/20 10:38 1 mg STAT ONE Administration Lorazepam Confirm 05/26/20 10:39 Ativan 1 Mg Administered 05/26/20 10:40 Dose 1 mg .ROUTE .STK-MED ONE Lab/Rad Data: Laboratory Result Diagrams 05/26/20 11:15 05/26/20 11:15 Laboratory Results 05/26/20 05/26/20 05/26/20 Range/Units 14:00 13:22 12:43 WBC (4.0-10.5) K/mm3 RBC (4.1-5.4) M/mm3 Hgb (12.0-16.0) gm/dl Hct (35-47) % MCV (78-100) fl MCH (26-32) pg MCHC (32-36) g/dl RDW (11.5-14.0) % Plt Count (150-450) K/mm3 MPV (7.5-11.0) fl Gran % (36.0-66.0) % Eos # (Auto) (0-0.5) Absolute Lymphs (auto) (1.0-4.6) Absolute Monos (auto) (0.0-1.3) Lymphocytes % (24.0-44.0) % Monocytes % (0.0-12.0) % Eosinophils % (0.00-5.0) % Basophils % (0.0-0.4) % Absolute Granulocytes (1.4-6.9) Basophils # (0-0.4) D-Dimer (215-500) ng/mL Sodium (137-145) mmol/L Potassium (3.5-5.1) mmol/L Chloride (98-107) mmol/L Carbon Dioxide (22-30) mmol/L Anion Gap (5-15) MEQ/L BUN (7-17) mg/dL Creatinine (0.52-1.04) mg/dL Estimated GFR ML/MIN Glucose (74-106) mg/dL Lactic Acid 3.0 H (0.4-2.0) Calcium (8.4-10.2) mg/dL Total Bilirubin (0.2-1.3) mg/dL AST (14-36) U/L ALT (0-35) U/L Alkaline Phosphatase (38-126) U/L Troponin I 0.097 H* (0.000-0.034) ng/mL Serum Total Protein (6.3-8.2) g/dL Albumin (3.5-5.0) g/dL Urine Color (YELLOW) Urine Appearance (CLEAR) Urine pH (5-6) Ur Specific [place] (1.005-1.025) Urine Protein (Negative) Urine Ketones (NEGATIVE) Urine Blood (0-5) Zach/ul Urine Nitrite (NEGATIVE) Urine Bilirubin (NEGATIVE) Urine Urobilinogen (0-1) mg/dL Ur Leukocyte Esterase (NEGATIVE) Urine WBC (Auto) (0-5) /HPF Urine RBC (Auto) (0-2) /HPF U Hyaline Cast (Auto) (0-2) /LPF U Epithel Cells (Auto) (FEW) /HPF Urine Bacteria (Auto) (NEGATIVE) /HPF Other Casts (Auto) (NEGATIVE) /LPF Urine Mucus (Auto) (NEGATIVE) /HPF Urine Culture Reflexed (NO) Urine Glucose (NEGATIVE) mg/dL SARS-CoV-2 (PCR) NEGATIVE (NEGATIVE) 05/26/20 05/26/20 05/26/20 Range/Units 12:02 11:15 11:15 WBC (4.0-10.5) K/mm3 RBC (4.1-5.4) M/mm3 Hgb (12.0-16.0) gm/dl Hct (35-47) % MCV (78-100) fl MCH (26-32) pg MCHC (32-36) g/dl RDW (11.5-14.0) % Plt Count (150-450) K/mm3 MPV (7.5-11.0) fl Gran % (36.0-66.0) % Eos # (Auto) (0-0.5) Absolute Lymphs (auto) (1.0-4.6) Absolute Monos (auto) (0.0-1.3) Lymphocytes % (24.0-44.0) % Monocytes % (0.0-12.0) % Eosinophils % (0.00-5.0) % Basophils % (0.0-0.4) % Absolute Granulocytes (1.4-6.9) Basophils # (0-0.4) D-Dimer (215-500) ng/mL Sodium 140 (137-145) mmol/L Potassium 3.3 L (3.5-5.1) mmol/L Chloride 107 (98-107) mmol/L Carbon Dioxide 23 (22-30) mmol/L Anion Gap 12.7 (5-15) MEQ/L BUN 10 (7-17) mg/dL Creatinine 1.03 (0.52-1.04) mg/dL Estimated GFR 56.3 ML/MIN Glucose 164 H (74-106) mg/dL Lactic Acid (0.4-2.0) Calcium 9.3 (8.4-10.2) mg/dL Total Bilirubin 0.50 (0.2-1.3) mg/dL AST 23 (14-36) U/L ALT 15 (0-35) U/L Alkaline Phosphatase 88 (38-126) U/L Troponin I 0.043 H* (0.000-0.034) ng/mL Serum Total Protein 6.3 (6.3-8.2) g/dL Albumin 3.8 (3.5-5.0) g/dL Urine Color YELLOW (YELLOW) Urine Appearance SLIGHTLY CLOUDY (CLEAR) Urine pH 6.0 (5-6) Ur Specific [place] 1.011 (1.005-1.025) Urine Protein 30 (Negative) Urine Ketones NEGATIVE (NEGATIVE) Urine Blood NEGATIVE (0-5) Zach/ul Urine Nitrite NEGATIVE (NEGATIVE) Urine Bilirubin NEGATIVE (NEGATIVE) Urine Urobilinogen NEGATIVE (0-1) mg/dL Ur Leukocyte Esterase MODERATE (NEGATIVE) Urine WBC (Auto) 11-15 (0-5) /HPF Urine RBC (Auto) 0-2 (0-2) /HPF U Hyaline Cast (Auto) 0-2 (0-2) /LPF U Epithel Cells (Auto) RARE (FEW) /HPF Urine Bacteria (Auto) NONE (NEGATIVE) /HPF Other Casts (Auto) 10-25 (NEGATIVE) /LPF Urine Mucus (Auto) SLIGHT (NEGATIVE) /HPF Urine Culture Reflexed YES (NO) Urine Glucose NEGATIVE (NEGATIVE) mg/dL SARS-CoV-2 (PCR) (NEGATIVE) 05/26/20 05/26/20 05/26/20 Range/Units 11:15 10:40 10:36 WBC 12.2 H (4.0-10.5) K/mm3 RBC 4.45 (4.1-5.4) M/mm3 Hgb 14.2 (12.0-16.0) gm/dl Hct 45.1 (35-47) % MCV 101.3 H (78-100) fl MCH 31.9 (26-32) pg MCHC 31.5 L (32-36) g/dl RDW 12.7 (11.5-14.0) % Plt Count 126 L (150-450) K/mm3 MPV 11.1 H (7.5-11.0) fl Gran % 85.6 H (36.0-66.0) % Eos # (Auto) 0.01 (0-0.5) Absolute Lymphs (auto) 0.81 L (1.0-4.6) Absolute Monos (auto) 0.90 (0.0-1.3) Lymphocytes % 6.7 L (24.0-44.0) % Monocytes % 7.4 (0.0-12.0) % Eosinophils % 0.1 (0.00-5.0) % Basophils % 0.2 (0.0-0.4) % Absolute Granulocytes 10.42 H (1.4-6.9) Basophils # 0.02 (0-0.4) D-Dimer 834 H* (215-500) ng/mL Sodium (137-145) mmol/L Potassium (3.5-5.1) mmol/L Chloride (98-107) mmol/L Carbon Dioxide (22-30) mmol/L Anion Gap (5-15) MEQ/L BUN (7-17) mg/dL Creatinine (0.52-1.04) mg/dL Estimated GFR ML/MIN Glucose (74-106) mg/dL Lactic Acid 3.5 H (0.4-2.0) Calcium (8.4-10.2) mg/dL Total Bilirubin (0.2-1.3) mg/dL AST (14-36) U/L ALT (0-35) U/L Alkaline Phosphatase (38-126) U/L Troponin I (0.000-0.034) ng/mL Serum Total Protein (6.3-8.2) g/dL Albumin (3.5-5.0) g/dL Urine Color (YELLOW) Urine Appearance (CLEAR) Urine pH (5-6) Ur Specific [place] (1.005-1.025) Urine Protein (Negative) Urine Ketones (NEGATIVE) Urine Blood (0-5) Zach/ul Urine Nitrite (NEGATIVE) Urine Bilirubin (NEGATIVE) Urine Urobilinogen (0-1) mg/dL Ur Leukocyte Esterase (NEGATIVE) Urine WBC (Auto) (0-5) /HPF Urine RBC (Auto) (0-2) /HPF U Hyaline Cast (Auto) (0-2) /LPF U Epithel Cells (Auto) (FEW) /HPF Urine Bacteria (Auto) (NEGATIVE) /HPF Other Casts (Auto) (NEGATIVE) /LPF Urine Mucus (Auto) (NEGATIVE) /HPF Urine Culture Reflexed (NO) Urine Glucose (NEGATIVE) mg/dL SARS-CoV-2 (PCR) (NEGATIVE) - Progress Progress: improved, re-examined Progress Note: 05/26/20 15:01 69 years old is evaluated for shaking episode with shortness of breath and anxiety. Initial EKG showed sinus tach with no acute ST elevations but has some lateral T wave changes. Initial troponins are 0.043, given aspirin. Patient is not complaining of any chest pain or shortness of breath. She is maintaining oxygen saturation around 97% on room air. I did not appreciate any acute findings on the chest x-ray. She has a white count of 12 and does have some element of UTI and is given a dose of Rocephin as well. D-dimers are 834, CTA is obtained and results are pending. Second repeat troponin is 0.09 with trending up. Initially patient was admitted to [facility] inpatient after discussion with Dr. Gonzalez but because of trending up troponin I have discussed with her again and agreed with transfer to facility with cardiology services. Discussed with Dr. Jacob at [facility], reviewed patient presentation, work-up and agreed with transfer. Did not want me to start her on the heparin drip. Patient remained chest pain-free throughout stay in the ER. Plan discussed with patient and who understand and agree with it. Discussed with Dr.: Mario Will see patient in: hospital (observation), other ([facility]) Counseled pt/family regarding: lab results, diagnosis, rad results - Departure Departure Disposition: Home Clinical Impression: Sepsis secondary to UTI, Anxiety, NSTEMI (non-ST elevated myocardial infarction) Condition: Stable Critical Care Time: Yes Critical Care Time(excluding separately billable procedures): Critical 30-74 mins Referrals: HITESH DUBON MD [Primary Care Provider] -
[2020-05-26] MEDS ORDERED: BABY ASPIRIN 81 MG CHEW PO ONE (12:03)
[2020-05-26 12:24] LABS: Appearance SLIGHTLY CLOUDY (CLEAR); Bilirubin NEGATIVE (NEGATIVE); Blood NEGATIVE Ery/ul (0-5); Epithelial Cells RARE /HPF (FEW); Glucose NEGATIVE (NEGATIVE); Hyaline Casts 0-2 /LPF (0-2); Ketones NEGATIVE (NEGATIVE); Leukocyte Esterase MODERATE (NEGATIVE); Mucus SLIGHT /HPF (NEGATIVE); Nitrite NEGATIVE (NEGATIVE); Protein,Urine Dip 30 (Negative); RBC 0-2 /HPF (0-2); Specific Gravity 1.011 (1.005-1.025); Urobilinogen NEGATIVE mg/dL (0-1)
[2020-05-26] MEDS ORDERED: ROCEPHIN 1 Gm-D5w 50 ml Bag** 1 G/50 ML IVPB IV STA (12:32)
[2020-05-26] MEDS ORDERED: ROCEPHIN 1 Gm-D5w 50 ml Bag** 1 G/50 ML IVPB IV ONE (12:35)
[2020-05-26] MEDS ORDERED: BABY ASPIRIN 81 MG CHEW ONE (13:42)
[2020-05-26 15:14] VITALS: BP 178/102; PULSE 81; O2SAT 97
--- NOTE | 2020-05-26 16:42 | XRAY ---
Indication: Elevated d-dimer. Anxiety. Multiple contiguous axial images obtained through the chest using 80 cc of Isovue-370 contrast and PE protocol. Comparison: None. There is good opacification of the pulmonary arteries to include the lobar and segmental branches. No filling defect/pulmonary embolus. Heart is enlarged. Aorta is normal in course and caliber. Large hiatal hernia with intrathoracic stomach and loop of transverse colon. Lungs hyperinflated with scattered mid to lower lung atelectasis/scarring bilaterally. No suspicious pulmonary mass, infiltrate, or effusion. Bony thorax intact with mild osteopenia, moderate multilevel degenerative spondylosis, and remote appearing minimal T11-T12 superior endplate fractures with approximately 25% height loss. Limited upper abdomen unremarkable. Impression: 1. Negative pulmonary embolus. No acute cardiopulmonary abnormalities. 2. Cardiomegaly, very large hiatal hernia, and chronic bony findings. Comment: Preliminary interpretation was made by [facility]. No critical discrepancy.
--- NOTE | 2020-05-26 16:44 | XRAY ---
Indication: Anxiety. Comparison: None Portable chest demonstrates cardiomegaly, minimal left midlung fibrosis/scarring, and large hiatal hernia. No focal infiltrate, consolidation, or large effusion. Bony thorax intact with mild osteopenia and mild scoliosis. Impression: Nonacute chest with chronic features.
== END 2020-05-26 15:33 | disposition short-term general hospital (02) ==
LOC: ED 10:22
DX: N39.0 Urinary tract infection, site not specified (principal); A41.9 Sepsis, unspecified organism; F41.9 Anxiety disorder, unspecified; I21.4 Non-ST elevation (NSTEMI) myocardial infarction
CPT/HCPCS: 71260; 80053; 81001; 83605; 84484; 85025; 85379; 87077; 87086; 87186; 93005; 96360; 96365; 99291; U0003; 36415; 71045; 99285; J0696; A9270-GY

== ENCOUNTER 2020-08-20 11:08 | Emergency (ER) | payer MEDICARE ==
--- NOTE | 2020-08-20 11:10 | ERPHSYRPT ---
- History of Present Illness Time Seen by Provider: 08/20/20 11:10 Source: patient, family Exam Limitations: clinical condition Physician History: This is a 69-year-old white female who has a history of chronic, recurrent right hip pain. It is been present for many years. She occasionally receives steroid injections. She does not recall the last time she received any steroid injections to the hip. Patient was seen in this emergency department on 07/14/2019 and there was a nonacute x-ray of the patient's pelvis and right hip. Patient returned to the emergency department on 07/16/2019 with persistent pain in her right hip and a CAT scan was performed and there was no acute findings. Patient was admitted for failed outpatient therapy and intractable right hip pain. Patient states that she does not see a pain specialist. She has not had any acute trauma. She has not had any fall. Patient is on Flexeril and hydrocodone. She has been taking her medication but the right hip pain has increased over the last 2 months. Patient has an appointment for a steroid injection into her right hip tomorrow. 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 Method of Injury: other (No injury) Occurred: other (Sitting pain over the last 2 months) Quality: aching Severity of Pain-Max: moderate Severity of Pain-Current: moderate Lower Extremities Pain: hip: right Modifying Factors: Improves With: movement Allergies/Adverse Reactions: ibuprofen Adverse Reaction (Mild, Verified 08/20/20 11:21) stomach upset Home Medications: Lisinopril 10 mg [Zestril 10 MG] 10 mg PO HS 12/29/16 [History] Lorazepam 0.5 mg [Ativan 0.5 MG] 0.5 mg PO BID 12/29/16 [History] Acetaminophen 325 mg [Tylenol 325 mg] 325 mg PO DAILY PRN 05/26/20 [History] Hx Tetanus, Diphtheria Vaccination/Date Given: No Hx Influenza Vaccination/Date Given: No Hx Pneumococcal Vaccination/Date Given: No Travel Risk - International Travel Have you traveled outside of the country in past 3 weeks: No - Coronavirus Screening Are you exhibiting any of the following symptoms?: No Close contact with a COVID-19 positive Pt in past 14-21 Days: No - Review of Systems Constitutional: No Symptoms Eyes: No Symptoms Ears, Nose, & Throat: No Symptoms Respiratory: No Symptoms Cardiac: No Symptoms Abdominal/Gastrointestinal: No Symptoms Genitourinary Symptoms: No Symptoms Musculoskeletal: Joint Pain (Right hip) Skin: No Symptoms Neurological: No Symptoms Psychological: No Symptoms Endocrine: No Symptoms Hematologic/Lymphatic: No Symptoms Immunological/Allergic: No Symptoms All Other Systems: Reviewed and Negative - Past Medical History Pertinent Past Medical History: Yes Neurological History: No Pertinent History ENT History: No Pertinent History Cardiac History: Hypertension, Other Respiratory History: No Pertinent History Endocrine Medical History: No Pertinent History Musculoskeletal History: Arthritis, Osteoarthritis GI Medical History: GERD, Hemorrhoids, Irritable Bowel History: No Pertinent History Psycho-Social History: Anxiety Female Reproductive Disorders: Abnormal Uterine Bleeding Other Medical History: anemia, mitral valve prolapse - Past Surgical History Past Surgical History: Yes Neuro Surgical History: No Pertinent History Cardiac: No Pertinent History Respiratory: No Pertinent History Gastrointestinal: Hemorrhoidectomy Genitourinary: No Pertinent History Musculoskeletal: No Pertinent History Female Surgical History: Hysterectomy, Tubal Ligation Other Surgical History: tubal - Social History Smoking Status: Never smoker Exposure to second hand smoke: No Drug Use: none Patient Lives Alone: No - Nursing Vital Signs Nursing Vital Signs: Initial Vital Signs Temperature 98.4 F 08/20/20 11:21 Pulse Rate 92 H 08/20/20 11:21 Respiratory Rate 18 08/20/20 11:21 O2 Sat by Pulse Oximetry 95 08/20/20 11:21 Pain Scale Pain Intensity 10 - Physical Exam General Appearance: no apparent distress, alert, anxiety Eyes, Ears, Nose, Throat Exam: normal ENT inspection, moist mucous membranes Neck Exam: normal inspection, non-tender, supple, full range of motion Cardiovascular/Respiratory Exam: chest non-tender, normal breath sounds, regular rate/rhythm, heart sounds normal, no respiratory distress Gastrointestinal/Abdominal Exam: non-tender Back Exam: normal inspection, normal range of motion, No CVA tenderness, No vertebral tenderness Hips Exam: right: pain, left: non-tender, bilateral: normal inspection, normal range of motion, no evidence of injury Legs Exam: bilateral leg: non-tender, normal inspection, normal range of motion, no evidence of injury Knees Exam: bilateral knee: non-tender, normal inspection, normal range of motion, no evidence of injury Ankle Exam: bilateral ankle: non-tender, normal inspection, normal range of motion, no evidence of injury Foot Exam: bilateral foot: non-tender, normal inspection, normal range of motion, no evidence of injury Neuro/Tendon Exam: normal sensation, normal motor functions, normal tendon functions, responds to pain Mental Status Exam: alert, oriented x 3, cooperative Skin Exam: normal color, warm, dry SpO2 Interpretation: normal O2 Delivery: Room Air - Course Nursing assessment & vital signs reviewed: Yes Ordered Tests: Active Orders 24 hr Category Date Time Status HIP UNI (2V) INCL PEL IF DONE Stat Exams 08/20/20 11:19 Completed Medication Summary Discontinued Medications Generic Name Dose Route Start Last Admin Trade Name Freq PRN Reason Stop Dose Admin Hydromorphone HCl 0.5 mg 08/20/20 12:16 Hydromorphone 1 Mg/Ml Injection IV 08/20/20 12:17 STAT ONE Ondansetron HCl 4 mg 08/20/20 12:16 Zofran 4 Mg/2 Ml Vial IV 08/20/20 12:17 STAT ONE - Progress Progress: improved, pain not gone completely Progress Note: 08/20/20 11:59 X-ray of the right hip and pelvis reveals findings consistent with Paget's disease. There are no acute/new findings when compared to the x-ray that was performed. There are no acute fractures or dislocations noted. 08/20/20 12:21 Medical decision making: I spoke with Dr. Dubon, the patient's primary care physician regarding this patient. I was not aware of that the patient is also to receive an x-ray of her right shoulder. The order is already in the radiology department. We will discharge the patient to home from the emergency department. We will attempt to arrange for the patient's infusion today rather than tomorrow as well as obtaining the x-ray of the patient's right shoulder. Dr. Dubon agrees with this plan and states that patient can be discharged to home. We will provide the patient with IV narcotics. Counseled pt/family regarding: diagnosis, need for follow-up, rad results - Departure Departure Disposition: Home Clinical Impression: Chronic hip pain, Paget's disease Condition: Stable Critical Care Time: No Referrals: HITESH DUBON MD [Primary Care Provider] - Additional Instructions: Take your medications as prescribed. go to your infusion appointment. obtain your shoulder xray.
--- NOTE | 2020-08-20 11:56 | XRAY ---
Indication: Right hip pain. Paget's disease. Comparison: July 14, 2019. AP pelvis and 2 view right hip unchanged again demonstrating Paget's appearance to the right innominate bone and mild right hip joint space narrowing. No new/acute bony, articular, or soft tissue abnormalities.
[2020-08-20] MEDS ORDERED: Zofran 4 MG/2 ML VIAL IV ONE (12:16)
[2020-08-20] MEDS ORDERED: Hydromorphone 1 mg/ml Injection IV ONE (12:16)
[2020-08-20] MEDS ORDERED: Zofran 4 MG/2 ML VIAL ONE (12:33)
[2020-08-20] MEDS ORDERED: Hydromorphone 1 mg/ml Injection ONE (12:34)
[2020-08-20 12:42] VITALS: O2SAT 93
[2020-08-20 13:02] VITALS: BP 137/89; PULSE 64
== END 2020-08-20 13:15 | disposition home or self-care (01) ==
LOC: ED 11:08
DX: G89.29 Other chronic pain (principal); F45.42 Pain disorder with related psychological factors; M19.90 Unspecified osteoarthritis, unspecified site; Z79.899 Other long term (current) drug therapy; K58.9 Irritable bowel syndrome, unspecified; I34.1 Nonrheumatic mitral (valve) prolapse; M88.9 Osteitis deformans of unspecified bone
CPT/HCPCS: 73502; 96374; 96375; 99284; J1170; J2405

== ENCOUNTER 2020-08-26 04:05 | Emergency (ER) | payer MEDICARE ==
--- NOTE | 2020-08-26 04:57 | ERPHSYRPT ---
- History of Present Illness Source: patient, family Exam Limitations: no limitations Patient Subjective Stated Complaint: pt states that she fell yesterday afternoon, pt states that she was reaching up in a cabinet and fell on her bottom, pt states that she got up this morning with severe rt hip pain and back pain Triage Nursing Assessment: pt came into the er via ambulance; pt is axo x3; c/o rt hip pain and back pain; pt states 9/10 pain to hip and back; pt is diapho retic; limited ROM to rt hip; tenderness present to rt hip and back; strong pedal pulses; good cap refill; clear lung sounds in all lobes; clear heart tones; strong radial pulses; vital wnl Method of Injury: fell Occurred: yesterday Quality: constant Severity of Pain-Max: moderate Severity of Pain-Current: moderate Lower Extremities Pain: hip: bilateral (right more than left) Modifying Factors: Improves With: movement (worsens), other (LBP as well) Associated Symptoms: none Hx Tetanus, Diphtheria Vaccination/Date Given: No Hx Influenza Vaccination/Date Given: No Hx Pneumococcal Vaccination/Date Given: No <WILLEM ORTIZ - Last Filed: 08/26/20 06:01> <TARIQ DUDLEY - Last Filed: 08/26/20 06:51> - History of Present Illness Time Seen by Provider: 08/26/20 04:24 Physician History: She has Paget's disease. She had a fall at home yesterday, landing on her buttock/right hip area. Progressive pain in those areas since. Can still get around slowly using her walker. Her home pain med, ultram, not helping much. (WILLEM ORTIZ) Allergies/Adverse Reactions: aspirin Allergy (Verified 08/26/20 04:08) Vomiting ibuprofen Adverse Reaction (Mild, Verified 08/26/20 04:08) stomach upset Home Medications: Lisinopril 10 mg [Zestril 10 MG] 20 mg PO BID 12/29/16 [History] Lorazepam 0.5 mg [Ativan 0.5 MG] 1 mg PO BID 12/29/16 [History] Carvedilol 6.25 mg [Coreg 6.25 MG] 6.25 mg PO BID 08/20/20 [History] Cyclobenzaprine HCl 10 mg [Cyclobenzaprine 10 MG] 5 mg PO TID PRN 08/20/20 [History] Tramadol HCl 50 mg [Ultram 50 mg] 50 mg PO Q6HPRN PRN 08/20/20 [History] Travel Risk - International Travel Have you traveled outside of the country in past 3 weeks: No - Coronavirus Screening Are you exhibiting any of the following symptoms?: No Close contact with a COVID-19 positive Pt in past 14-21 Days: No <WILLEM ORTIZ - Last Filed: 08/26/20 06:01> - Review of Systems Constitutional: No Symptoms Eyes: No Symptoms Ears, Nose, & Throat: No Symptoms Respiratory: No Symptoms Cardiac: No Symptoms Abdominal/Gastrointestinal: No Symptoms Genitourinary Symptoms: No Symptoms Musculoskeletal: No Symptoms Skin: No Symptoms Neurological: No Symptoms Psychological: No Symptoms Endocrine: No Symptoms Hematologic/Lymphatic: No Symptoms Immunological/Allergic: No Symptoms All Other Systems: Reviewed and Negative <WILLEM ORTIZ - Last Filed: 08/26/20 06:01> - Past Medical History Pertinent Past Medical History: Yes Neurological History: No Pertinent History ENT History: No Pertinent History Cardiac History: Hypertension, Other Respiratory History: No Pertinent History Endocrine Medical History: No Pertinent History Musculoskeletal History: Arthritis, Osteoarthritis GI Medical History: GERD, Hemorrhoids, Irritable Bowel History: No Pertinent History Psycho-Social History: Anxiety Female Reproductive Disorders: Abnormal Uterine Bleeding Other Medical History: anemia, mitral valve prolapse - Past Surgical History Past Surgical History: Yes Neuro Surgical History: No Pertinent History Cardiac: No Pertinent History Respiratory: No Pertinent History Gastrointestinal: Hemorrhoidectomy Genitourinary: No Pertinent History Musculoskeletal: No Pertinent History Female Surgical History: Hysterectomy, Tubal Ligation Other Surgical History: tubal - Social History Smoking Status: Never smoker Exposure to second hand smoke: No Drug Use: none Patient Lives Alone: No <WILLEM ORTIZ - Last Filed: 08/26/20 06:01> - Physical Exam General Appearance: moderate distress Eyes, Ears, Nose, Throat Exam: normal ENT inspection Neck Exam: normal inspection Cardiovascular/Respiratory Exam: chest non-tender, normal breath sounds Gastrointestinal/Abdominal Exam: non-tender Back Exam: normal inspection, decreased range of motion, other (generalized LBP, more on the right) Hips Exam: right: bone tenderness (some on the left), limited range of motion Legs Exam: bilateral leg: non-tender Knees Exam: bilateral knee: non-tender Ankle Exam: bilateral ankle: non-tender Foot Exam: bilateral foot: non-tender Neuro/Tendon Exam: normal sensation, normal motor functions Mental Status Exam: alert, oriented x 3 Skin Exam: normal color, warm, dry SpO2: 94 <WILLEM ORTIZ - Last Filed: 08/26/20 06:01> - Nursing Vital Signs Nursing Vital Signs: Initial Vital Signs Temperature 98.3 F 08/26/20 04:08 Pulse Rate 87 08/26/20 04:08 Respiratory Rate 18 08/26/20 04:08 Blood Pressure 128/86 08/26/20 04:08 O2 Sat by Pulse Oximetry 94 L 08/26/20 04:08 Pain Scale Pain Intensity 6 - Course Nursing assessment & vital signs reviewed: Yes <WILLEM ORTIZ - Last Filed: 08/26/20 06:01> Ordered Tests: Active Orders 24 hr Category Date Time Status LUMBAR SPINE W/O [CT] Stat Exams 08/26/20 05:32 Taken PELVIS WITHOUT CONTRAST [CT] Stat Exams 08/26/20 05:33 Taken Medication Summary Discontinued Medications Generic Name Dose Route Start Last Admin Trade Name [place] PRN Reason Stop Dose Admin Hydrocodone Bitart/Acetaminophen 1 tab 08/26/20 05:09 08/26/20 05:14 [place] 7.5/325 Mg Tab PO 08/26/20 05:10 1 tab STAT ONE Administration Hydromorphone HCl 1 mg 08/26/20 05:01 08/26/20 05:16 Hydromorphone 1 Mg/Ml Injection IM 08/26/20 05:02 Not Given STAT ONE Promethazine HCl 25 mg 08/26/20 05:02 08/26/20 05:15 Phenergan 25 Mg Inj IM 08/26/20 05:03 Not Given STAT ONE <WILLEM ORTIZ - Last Filed: 08/26/20 06:01> - Progress Progress: improved, pain not gone completely Counseled pt/family regarding: lab results, diagnosis, need for follow-up, rad results <TARIQ DUDLEY - Last Filed: 08/26/20 06:51> - Progress Progress Note: 08/26/20 05:[address] Dudley at 0600. (WILLEM ORTIZ) 08/26/20 06:44 CAT scan of the pelvis reveals no acute fracture or dislocation of any bony elements. CAT scan of the lumbar spine shows an acute central compression fracture of the superior and inferior vertebral body endplates of L4. There is minimal retropulsion of the posterior wall of L4 into the ventral spinal canal without significant spinal stenosis. There are chronic appearing compression fractures of T12 and L1. Medical decision making: This patient will be discharged to home. We will change her pain medication regimen. She is to stop her tramadol. Patient states she has not been using her Marathon. In addition, she has not been using her lorazepam. We will keep her and bedrest at home with bathroom privileges. She is to contact her prescribing doctor tomorrow morning with instructions to inquire about pain management physician appointment. (TARIQ DUDLEY) - Departure Departure Disposition: Home Critical Care Time: No <WILLEM ORTIZ - Last Filed: 08/26/20 06:01> - Departure Critical Care Time: No <TARIQ DUDLEY - Last Filed: 08/26/20 06:51> - Departure Clinical Impression: Contusion Condition: Stable Referrals: HITESH DUBON MD [Primary Care Provider] - Additional Instructions: Stop your tramadol. Stop your cyclobenzaprine muscle relaxant. Take your lorazepam as prescribed. Take your Marathon as prescribed. Bed rest and bathroom privileges only. Follow-up with your prescribing doctor on 08/27/2020 to make arrangements for a follow-up with them as well as an appointment for pain management. Prescriptions: Prednisone 10 mg [Deltasone 10 mg] 10 mg PO TID #12 tablet
[2020-08-26] MEDS: NORCO 7.5/325 MG TAB PO ONE (05:14)
[2020-08-26] MEDS: Phenergan 25 MG INJ IM ONE (05:15)
[2020-08-26] MEDS: Hydromorphone 1 mg/ml Injection IM ONE ×2 (05:16→06:58)
[2020-08-26] MEDS ORDERED: Hydromorphone 1 mg/ml Injection ONE (06:53)
[2020-08-26] MEDS ORDERED: Zofran 4 MG/2 ML VIAL ONE (06:53)
[2020-08-26] MEDS ORDERED: solu-MEDROL 125 MG ONE (06:54)
[2020-08-26] MEDS: solu-MEDROL 125 MG IM ONE (06:55)
[2020-08-26] MEDS ORDERED: ZOFRAN ODT 4 MG ONE (06:57)
[2020-08-26] MEDS: ZOFRAN ODT 4 MG PO ONE (06:59)
[2020-08-26 07:24] VITALS: BP 140/80; PULSE 87; O2SAT 98
--- NOTE | 2020-08-26 08:53 | XRAY ---
Indication: Low back and pelvic pain following fall. Multiple contiguous axial images obtained through the lumbar spine. Sagittal and coronal reformatted images obtained. Comparison: CT abdomen/pelvis December 29, 2016. Stable age-related osteopenia. New acute appearing central L4 compression fracture with 25-50% height loss. Also new remote-appearing T12/L1 superior endplate fractures with 25-50% height loss. No spinal canal or foraminal encroachment. Disc levels demonstrates a stable minimal L2-S1 broad-based disc bulge. No discrete herniation or spinal canal stenosis. Facets are symmetric. Sagittal and coronal reformatted images again demonstrates normal lumbar lordosis with stable moderate dextroscoliosis centered at L2. No subluxation. CT pelvis reported separately. The visualized noncontrasted soft tissues again demonstrates incompletely visualized hiatal hernia and minimal aortic calcifications. Impression: 1. New L4 acute compression fracture without spinal canal or foraminal encroachment. 2. New remote-appearing T12/L1 tube superior endplate fractures. 3. Stable osteopenia, L2-S1 degenerative disc disease, and scoliosis. Comment: Preliminary interpretation was made by [facility]. No critical discrepancy.
--- NOTE | 2020-08-26 08:57 | XRAY ---
Indication: Low back and pelvic pain following fall. History of Paget's disease. Multiple contiguous axial images obtained through the pelvis with special attention to the osseous structures. Sagittal and coronal reformatted images obtained. Comparison: CT abdomen/pelvis December 29, 2016. CT lumbar spine reported separately. 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 Remaining pelvis negative for acute fracture, dislocation, or suspicious bony lesions. Remaining visualized noncontrasted soft tissues unchanged again demonstrating incidental sigmoid diverticulosis and minimal aortic calcifications. Impression: 1. Negative acute fracture/dislocation. 2. Stable osteopenia, bilateral hip degenerative arthropathy, and right innominate Paget's disease. Comment: Preliminary interpretation was made by [facility]. No critical discrepancy.
== END 2020-08-26 07:37 | disposition home or self-care (01) ==
LOC: ED 04:05
DX: T14.8XXA Other injury of unspecified body region, initial encounter (principal); W18.30XA Fall on same level, unspecified, initial encounter; Y93.9 Activity, unspecified; Y92.9 Unspecified place or not applicable; M25.551 Pain in right hip; M25.552 Pain in left hip; M54.9 Dorsalgia, unspecified; I10 Essential (primary) hypertension; Z79.899 Other long term (current) drug therapy; F41.9 Anxiety disorder, unspecified
CPT/HCPCS: 72131; 72192; 96372; 99284; J1170; J2405; J2930; Q0162; A9270-GY

== ENCOUNTER 2021-05-24 11:28 | Emergency (ER) | payer MEDICARE ==
--- NOTE | 2021-05-24 11:34 | ERPHSYRPT ---
- History of Present Illness Time Seen by Provider: 05/24/21 11:34 Source: patient, EMS Exam Limitations: no limitations Physician History: This is a 70-year-old female who presents via EMS with a complaint of 10 out of 10 lower back pain. Patient bent over and twisted to brick picker her dog 6 days ago and over the course of the week her back pain has worsened. She did not suffer any acute trauma from fall. She has a history of hypertension, significant arthritis as well as gastroesophageal reflux disease. She cannot take aspirin or NSAIDs. She has taken steroids in the past without any issues. She has no loss of bowel or bladder control. She has no numbness in her lower extremities. Timing/Duration: day(s) (6), worse Method of Injury: lifting, twisted, turning Quality: sharp, stabbing Back Pain Location: lumbar spine Severity of Pain-Max: moderate Severity of Pain-Current: moderate Modifying Factors: Improves With: movement Associated Symptoms: lower back pain, No loss of bowel control, No problems urinating, No numbness in legs/feet Previous symptoms: no prior history Allergies/Adverse Reactions: aspirin Allergy (Verified 05/24/21 11:40) Vomiting ibuprofen Adverse Reaction (Mild, Verified 05/24/21 11:40) stomach upset aloe Adverse Reaction (Verified 05/24/21 11:40) Rash Home Medications: Lisinopril 10 mg [Zestril 10 MG] 20 mg PO BID 12/29/16 [History] Lorazepam 0.5 mg [Ativan 0.5 MG] 1 mg PO BID 12/29/16 [History] Carvedilol 6.25 mg [Coreg 6.25 MG] 6.25 mg PO BID 08/20/20 [History] Cyclobenzaprine HCl 10 mg [Cyclobenzaprine 10 MG] 5 mg PO TID PRN 08/20/20 [History] hydroCHLOROthiazide [Hydrochlorothiazide] 12.5 mg PO DAILY 05/24/21 [History] Hx Tetanus, Diphtheria Vaccination/Date Given: No Hx Influenza Vaccination/Date Given: No Hx Pneumococcal Vaccination/Date Given: No - Past Medical History Pertinent Past Medical History: Yes Neurological History: No Pertinent History ENT History: No Pertinent History Cardiac History: Hypertension, Other Respiratory History: No Pertinent History Endocrine Medical History: No Pertinent History Musculoskeletal History: Arthritis, Osteoarthritis GI Medical History: GERD, Hemorrhoids, Irritable Bowel History: No Pertinent History Psycho-Social History: Anxiety Female Reproductive Disorders: Abnormal Uterine Bleeding Other Medical History: anemia, mitral valve prolapse - Past Surgical History Past Surgical History: Yes Neuro Surgical History: No Pertinent History Cardiac: No Pertinent History Respiratory: No Pertinent History Gastrointestinal: Hemorrhoidectomy Genitourinary: No Pertinent History Musculoskeletal: No Pertinent History Female Surgical History: Hysterectomy, Tubal Ligation Other Surgical History: tubal - Social History Smoking Status: Never smoker Exposure to second hand smoke: No Drug Use: none Patient Lives Alone: No - Nursing Vital Signs Nursing Vital Signs: Initial Vital Signs Temperature 97.9 F 05/24/21 11:32 Pulse Rate 73 05/24/21 11:32 Respiratory Rate 16 05/24/21 11:32 Blood Pressure 160/107 05/24/21 11:32 O2 Sat by Pulse Oximetry 96 05/24/21 11:32 Pain Scale Pain Intensity [Left Back] 10 Pain Intensity 10 - Progress Progress: improved, pain not gone completely, re-examined Counseled pt/family regarding: diagnosis, need for follow-up - Departure Departure Disposition: Home Clinical Impression: Acute exacerbation of chronic low back pain Condition: Stable Critical Care Time: No Referrals: HITESH DUBON MD [Primary Care Provider] - Additional Instructions: Take your cyclobenzaprine 3 times a day for the next 3 days. Continue taking your lorazepam/Ativan as prescribed. Follow-up with your primary prescribing doctor on 05/27/2021 to make arrangements for a follow-up appointment. Prescriptions: Hydrocodone/APAP 5/325 [[place] 5/325 mg] 1 each PO Q8H PRN PRN #6 tablet MDD 3 PRN Reason: Pain
[2021-05-24 11:40] VITALS: O2SAT 96
[2021-05-24] MEDS ORDERED: ZOFRAN ODT 4 MG PO ONE (11:55)
[2021-05-24] MEDS ORDERED: MORPHINE SULFATE 4 MG INJ IM ONE (11:55)
[2021-05-24] MEDS ORDERED: Norflex 60 MG/2 ML IM ONE (11:56)
[2021-05-24] MEDS ORDERED: Zofran 4 MG/2 ML VIAL IV ONE (12:01)
[2021-05-24] MEDS ORDERED: Norflex 60 MG/2 ML IV ONE (12:01)
[2021-05-24] MEDS ORDERED: Zofran 4 MG/2 ML VIAL ONE (12:02)
[2021-05-24] MEDS ORDERED: Norflex 60 MG/2 ML ONE (12:02)
[2021-05-24] MEDS ORDERED: MORPHINE SULFATE 4 MG INJ ONE (12:02)
[2021-05-24] MEDS ORDERED: MORPHINE SULFATE 4 MG INJ IV ONE (12:04)
[2021-05-24 12:38] VITALS: BP 146/95; PULSE 72
== END 2021-05-24 12:46 | disposition home or self-care (01) ==
LOC: ED 11:28
DX: M54.5 Low back pain (principal); Z79.899 Other long term (current) drug therapy; M19.90 Unspecified osteoarthritis, unspecified site
CPT/HCPCS: 36000; 96374; 96375; 99284; J2270; J2360; J2405

== ENCOUNTER 2021-05-31 11:05 | Emergency (ER) | payer MEDICARE ==
--- NOTE | 2021-05-31 11:39 | ERPHSYRPT ---
- History of Present Illness Time Seen by Provider: 05/31/21 11:20 Source: patient, family, EMS Exam Limitations: no limitations Patient Subjective Stated Complaint: Back pain Triage Nursing Assessment: Patient brought into ED via EMS and transferred to bed with assist of 2. Patient A+O X3. Patient's skin pink, warm and dry. Patient complains of left sided back pain that radiates down the front side of left leg. Patient has been dealing with pain for the past two weeks and had xrays scheduled today but wasn't able to get into car. Patient denies trauma or injury. Physician History: This is a 70-year-old white female patient of Dr. Dubon she was seen here on 05/24/2021 for the same complaint of low back pain. Patient did not have an interval episode of falling or acute traumatic injury. Patient was brought in by EMS. Patient was given fentanyl intravenously and her pain went from a 10 out of 10 to a 5 out of 10 upon arrival to the emergency department. Patient was supposed to receive lumbar spine x-rays but could not get into the car to come to the hospital for the x-rays. Therefore EMS was contacted. In the last several days, there is been a change in her ability to move. Patient has a history of hypertension, arthritis. She has no loss of bowel or bladder control. She cannot take aspirin or NSAIDs. Patient is on Ativan and Flexeril. She was given a prescription for 6 tablets of [place] 5/325 on her last visit on 05/24/2021. She is also seen Dr. Dubon since her visit here last week. Patient stated that she had an appointment with a pain specialist prior to the COVID- pandemic. However she was unable to keep that appointment because it was canceled. Since that time her pain in her lower back had improved until recently Timing/Duration: day(s) (Several days), worse Method of Injury: other (No injury) Back Pain Location: lumbar spine Severity of Pain-Max: moderate Severity of Pain-Current: moderate Modifying Factors: Improves With: movement Associated Symptoms: lower back pain, muscle spasms, No urinary incontinence, No loss of bowel control, No numbness in legs/feet, No tingling in legs/feet Previous symptoms: same symptoms as today, recently seen, recently treated Allergies/Adverse Reactions: aspirin Allergy (Verified 05/31/21 11:09) Vomiting ibuprofen Adverse Reaction (Mild, Verified 05/31/21 11:09) stomach upset aloe Adverse Reaction (Verified 05/31/21 11:09) Rash Home Medications: Lisinopril 10 mg [Zestril 10 MG] 20 mg PO BID 12/29/16 [History] Lorazepam 0.5 mg [Ativan 0.5 MG] 1 mg PO BID 12/29/16 [History] Carvedilol 6.25 mg [Coreg 6.25 MG] 6.25 mg PO BID 08/20/20 [History] Cyclobenzaprine HCl 10 mg [Cyclobenzaprine 10 MG] 5 mg PO TID PRN 08/20/20 [History] hydroCHLOROthiazide [Hydrochlorothiazide] 12.5 mg PO DAILY 05/24/21 [History] Hx Tetanus, Diphtheria Vaccination/Date Given: No Hx Influenza Vaccination/Date Given: No Hx Pneumococcal Vaccination/Date Given: No Immunizations Up to Date: Yes Travel Risk - International Travel Have you traveled outside of the country in past 3 weeks: No - Coronavirus Screening Are you exhibiting any of the following symptoms?: No Close contact with a COVID-19 positive Pt in past 14-21 Days: No - Vaccine Status Have you recieved a Covid-19 vaccination: Yes Mate [employer]: [employer] - Review of Systems Constitutional: No Symptoms Eyes: No Symptoms Ears, Nose, & Throat: No Symptoms Respiratory: No Symptoms Cardiac: No Symptoms Abdominal/Gastrointestinal: No Symptoms Genitourinary Symptoms: No Symptoms Musculoskeletal: Back Pain, No Fall, No Injury Skin: No Symptoms Neurological: No Symptoms Psychological: No Symptoms Endocrine: No Symptoms Hematologic/Lymphatic: No Symptoms Immunological/Allergic: No Symptoms All Other Systems: Reviewed and Negative - Past Medical History Pertinent Past Medical History: Yes Neurological History: No Pertinent History ENT History: No Pertinent History Cardiac History: Hypertension, Other Respiratory History: No Pertinent History Endocrine Medical History: No Pertinent History Musculoskeletal History: Arthritis, Osteoarthritis GI Medical History: GERD, Hemorrhoids, Irritable Bowel History: No Pertinent History Psycho-Social History: Anxiety Female Reproductive Disorders: Abnormal Uterine Bleeding Other Medical History: anemia, mitral valve prolapse - Past Surgical History Past Surgical History: Yes Neuro Surgical History: No Pertinent History Cardiac: No Pertinent History Respiratory: No Pertinent History Gastrointestinal: Hemorrhoidectomy Genitourinary: No Pertinent History Musculoskeletal: No Pertinent History Female Surgical History: Hysterectomy, Tubal Ligation Other Surgical History: tubal - Social History Smoking Status: Never smoker Exposure to second hand smoke: No Drug Use: none Patient Lives Alone: No - Female History Hx Now: No - Nursing Vital Signs Nursing Vital Signs: Initial Vital Signs Temperature 97.9 F 05/31/21 11:10 Pulse Rate 82 05/31/21 11:10 Respiratory Rate 18 05/31/21 11:10 Blood Pressure 181/105 05/31/21 11:10 O2 Sat by Pulse Oximetry 94 L 05/31/21 11:10 Pain Scale Pain Intensity 5 - Physical Exam General Appearance: no apparent distress, alert, anxiety Eye Exam: PERRL/EOMI, eyes nml inspection Ears, Nose, Throat Exam: normal ENT inspection, moist mucous membranes Neck Exam: normal inspection, non-tender, supple, full range of motion Respiratory Exam: airway intact, No chest tenderness, No respiratory distress Gastrointestinal Exam: No tenderness Pelvic Exam: not done Rectal Exam: not done Back Exam: normal inspection, vertebral tenderness, decreased range of motion, No CVA tenderness, No muscle spasm, No point tenderness Extremity Exam: normal inspection, normal range of motion, pelvis stable Neurologic Exam: alert, oriented x 3, cooperative, electromechanical assembler II-XII nml as tested, normal mood/affect, nml cerebellar function, nml station & gait, sensation nml Skin Exam: normal color, warm, dry Lymphatic Exam: No adenopathy SpO2 Interpretation: normal SpO2: 94 O2 Delivery: Room Air - Course Nursing assessment & vital signs reviewed: Yes Ordered Tests: Active Orders 24 hr Category Date Time Status LUMBAR SPINE W/O [CT] Stat Exams 05/31/21 11:39 Completed Medication Summary Discontinued Medications Generic Name Dose Route Start Last Admin Trade Name Freq PRN Reason Stop Dose Admin Hydrocodone Bitart/Acetaminophen 1 tab 05/31/21 12:32 05/31/21 12:52 [place] 5/325 Mg PO 05/31/21 12:33 1 tab STAT ONE Administration Hydrocodone Bitart/Acetaminophen Confirm 05/31/21 12:46 [place] 5/325 Mg Administered 05/31/21 12:47 Dose 1 tab .ROUTE .STK-MED ONE Methylprednisolone Sodium 0 mg 08/06/21 12:33 05/31/21 12:55 Succinate 125 mg/ Sterile IV 05/31/21 12:34 125 mg Water 2 ml STAT ONE Administration Lorazepam 0.5 mg 05/31/21 12:33 05/31/21 12:51 Ativan 2 Mg/1 Ml Vial IV 05/31/21 12:34 0.5 mg STAT ONE Administration Lorazepam Confirm 05/31/21 12:46 Ativan 2 Mg/1 Ml Vial Administered 05/31/21 12:47 Dose 2 mg .ROUTE .STK-MED ONE Methylprednisolone Sodium Succinate Confirm 05/31/21 12:46 Solu-Medrol Administered 05/31/21 12:47 Dose 125 mg .ROUTE .STK-MED ONE Sterile Water Confirm 05/31/21 12:46 Sterile H2o 10 Ml Administered 05/31/21 12:47 Dose 10 ml IJ .STK-MED ONE - Progress Progress: improved, pain not gone completely, re-examined Progress Note: 05/31/21 13:38 CAT scan of the lumbar spine without contrast was discussed with Dr. Casillas our in-house radiologist. He states there is worsening compression fracture of L4 vertebral body, there is a new central vertebral body endplate compression fracture of L2 there is slight worsening of her spinal stenosis when compared to CAT scan of her lumbar spine from 08/26/2020. I discussed these findings with Dr. Dubon and with the patient and her 05/31/21 13:42 Medical decision making: I spoke with the patient and her as well as Dr. Dubon. The patient has oxycodone approximately 20 or more tablets remaining. In addition she has Ativan that I told her to increase from 2 times a day to 3 times a day. She states she is out of her Flexeril and we will send a prescription for that medication as well as prednisone to her pharmacy that she will take over the weekend. I reviewed this plan with Dr. Dubon and he agrees with this is an appropriate plan. She will follow up with his office on Thursday and they will make arrangements to have the patient see a back specialist as well as pain specialist. Family and patient agrees to this plan. Counseled pt/family regarding: diagnosis, need for follow-up, rad results - Departure Departure Disposition: Home Clinical Impression: Compression fracture of lumbosacral spine Condition: Stable Critical Care Time: No Referrals: HITESH DUBON MD [Primary Care Provider] - Additional Instructions: Follow-up with Dr. Dubon's office on 06/03/2021 for further instructions, evaluation and management. Take your medication as discussed. Fill your new medication and take as prescribed. Prescriptions: Cyclobenzaprine HCl 5 mg PO TID #10 tablet Prednisone 10 mg [Deltasone 10 mg] 10 mg PO TID #12 tablet
[2021-05-31] MEDS ORDERED: NORCO 5/325 MG ONE (12:46)
[2021-05-31] MEDS ORDERED: solu-MEDROL ONE (12:46)
[2021-05-31] MEDS ORDERED: Ativan 2 MG/1 ML VIAL ONE (12:46)
[2021-05-31] MEDS ORDERED: Sterile H2O 10 ml IJ ONE (12:46)
[2021-05-31] MEDS: Ativan 2 MG/1 ML VIAL IV ONE (12:51)
[2021-05-31] MEDS: NORCO 5/325 MG PO ONE (12:52)
[2021-05-31] MEDS: solu-MEDROL 125 MG, Sterile H2O 10 ml 2 ML IV ONE ×2 (12:55)
--- NOTE | 2021-05-31 13:29 | XRAY ---
Exam: Lumbar spine CT without IV contrast from 05/31/2021. CTDI: 8.53 mGy Comparison: CT of the lumbar spine without IV contrast from 08/26/2020. Indication: Chronic recurrent lumbar spine pain. Technique: Non-IV contrast axial images were obtained through the lumbar spine. Reconstructed coronal and sagittal images were created and reviewed. Findings: The CT [employer] image again reveals a mild mid lumbar rotary dextroscoliosis. A large hiatal hernia is again only partially visualized. There is a worsening biconcave fracture deformity of the L4 vertebral body. The L4 vertebral body appears somewhat sclerotic, and I wonder whether this bone is involved with Paget's disease as well. 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 The anterior and posterior vertebral body heights of L4 are about 50% of that anticipated, whereas the central L4 vertebral body height is less than 10% of that anticipated. Again, this is much worse than that seen on 08/26/2020. I believe there is some mild impingement of the posterior compressed L4 vertebral body upon the anterior aspect of the spinal sac on the midline sagittal images, but I detect no spondylolysis or other fracture involving the posterior elements of L4. In addition, I see a new marked central superior vertebral endplate compression of L2 with an apparent fracture line seen anteriorly and toward the left demonstrating mild displacement. There is also new moderate inferior vertebral endplate compression of the L2 vertebral body. The compression of the upper posterior aspect of L2 may be causing mild mass effect upon the anterior aspect of the spinal sac at this level on sagittal image #42. There is also a new moderate central inferior vertebral endplate compression of L2. All of these findings could be acute or subacute. There is moderate central superior vertebral endplate L1 compression fracture which appears similar to 08/26/2020. I also note a moderate anterior wedge fracture deformity of T12 which is similar to 08/26/2020. Some vacuum disc phenomena is seen within both the T11-T12 and T12-L1 interspace levels. I see no spondylolysis. The visualized portion of the right iliac bone is enlarged and displays a coarsened trabecular pattern consistent with Paget's disease. I see no other acute lumbar spine fracture. However, at its believe that the symphysis I don't believe L3-L4, there appears to be a significant central canal spinal stenosis manifested by a diffusely bulging disc and hypertrophy of the ligament mentum flavum posteriorly. Further assessment is difficult on these images obtained with a bone filter. I believe the spinal stenosis is worse on the current study as compared to 08/26/2020. I see no other definite disc protrusion or significant lumbar canal spinal stenosis throughout the lumbar spine. There is minimal stable diffuse bulging of the L4-L5 disc. I note mild right L5-S1 facet joint osteoarthritis. I do not appreciate any significant neural foraminal narrowing. Impression: 1. There is a worsening biconcave compression fracture of the L4 vertebral body as compared to 08/26/2020. The compressed L4 vertebra has a sclerotic appearance which could be due to Paget's disease, or alternatively, compressed bone elements. See above. Furthermore, there is a moderate to marked central canal spinal stenosis at L3-L4 which I believe is worse as compared to 08/26/2020. 2. There are new central vertebral endplate compression fractures of the L2 vertebral body, more pronounced involving the superior endplate as compared to the inferior endplate. Furthermore, I see a cortical fracture line with minimal displacement along the upper anterior left lateral edge of the L2 vertebral body which is new from 08/26/2020. 3. No other new lumbar spine fracture is seen. I again see a moderate anterior wedge fracture deformity of T12 and a moderate central superior vertebral endplate compression fracture of L1. These appear stable as compared to 08/26/2020. 4. Very large hiatal hernia is partially seen. 5. There are changes consistent with Paget's disease involving the visualized right iliac bone.
[2021-05-31 14:16] VITALS: BP 163/89; PULSE 72; O2SAT 96
== END 2021-05-31 14:17 | disposition home or self-care (01) ==
LOC: ED 11:05
DX: S32.9XXA Fracture of unspecified parts of lumbosacral spine and pelvis, initial encounter for closed fracture (principal); M62.830 Muscle spasm of back; I10 Essential (primary) hypertension; M19.90 Unspecified osteoarthritis, unspecified site; Z79.899 Other long term (current) drug therapy
CPT/HCPCS: 72131; 96374; 96375; 99284; J2060; J2930; A9270-GY